=== PATIENT | male | born 1965 | race Hispanic/Latino ===

== ENCOUNTER 2019-01-09 08:08 | Inpatient (IN) | payer SELFPAY ==
[2019-01-09 08:46] LABS: #Basophils 0.1 thou/uL (0.0-0.2); #Lymphocytes 0.7 thou/uL (1.20-3.40); #Monocytes 0.6 thou/uL (0.11-0.59); %Basophils 0.9 % (0.0-1.0); %Eosinophils 0.4 % (0.0-10.0); %Lymphocytes 8.9 % (21.0-51.0); %Monocytes 7.7 % (0.0-10.0); %Neutrophils 82.1 % (42.0-75.0); Hemoglobin 11.3 g/dL (14.0-18.0); Mean Corpuscular HGB CONC 31.8 g/dL (32.0-36.0); Mean Corpuscular Hemoglobin 31.9 pg (27.0-31.0); Platelet Count 110 thou/uL (130-400); RBC Distribution Width 13.9 % (11.5-14.5); Red Blood Cell (RBC) Count 3.55 mill/uL (4.70-6.10); White Blood Cell (WBC) Count 7.3 thou/uL (4.8-10.8)
[2019-01-09 08:50] LABS: INR-International Normal Ratio 1.5; PTT 33.7 SEC (22.9-36.1); Prothrombin Time 17.7 SEC (12.0-14.7)
[2019-01-09 09:03] LABS: ALT (SGPT) 49 U/L (8-55); AST (SGOT) 103 U/L (5-34); Albumin 3.1 g/dL (3.5-5.0); Alkaline Phosphatase 75 U/L (40-150); Anion Gap 18 mmol/L (10-20); BUN (Urea Nitrogen) 18 mg/dL (8.4-25.7); Bilirubin, Total 2.8 mg/dL (0.2-1.2); Calc. Creatinine Clearance 0 mL/min (70-130); Calcium 8.2 mg/dL (7.8-10.44); Carbon Dioxide 18 mmol/L (22-29); Chloride 106 mmol/L (98-107); Estimated GFR-MDRD Greater than 90; Globulin 3.9 g/dL (2.4-3.5); Glucose 101 mg/dL (70-105); Potassium 4.9 mmol/L (3.5-5.1); Sodium 137 mmol/L (136-145)
--- NOTE | 2019-01-09 10:36 | CT ---
CT ABDOMEN AND PELVIS WITH IV CONTRAST: HISTORY: Abdominal pain, distention, GI bleed. FINDINGS: Comparison is made with the exam of 04/05/2017. The lung bases are clear. There are changes of fatty infiltration of the liver. There is irregulari ty of the liver surface suspicious for cirrhosis. No enhancing hepatic mass is seen. The spleen izabella sures about 15 cm in length. The pancreas, adrenal glands, and kidneys appear normal. No calcified gallstones are seen. There is edema in the wall of the gallbladder. No free air, free fluid, or lymphadenopathy is seen. The prostate is mildly enlarged. There are vascular calcificatio ns without evidence of aneurysmal dilatation of the abdominal aorta. There are a few prominent mesen teric lymph nodes measuring up to 7 mm. There are vascular calcifications without evidence of aneurysmal dilatation of the abdominal aorta. No portosplenic thrombosis is seen. There are degenerative changes in the spine. A small hiatal her bill is present. IMPRESSION: 1. Cirrhosis and fatty infiltration of the liver. 2. Splenomegaly. 3. Mild prostatic enlargement. 4. Gallbladder wall edema/thickening. If there is concern for acute cholecystitis, HIDA scan should be performed. 5. Small hiatal hernia. POS: OFF
[2019-01-09] MEDS ORDERED: ISOVUE-370 76%-LOCM 1 ML ONE (11:00)
[2019-01-09] MEDS ORDERED: Pantoprazole 40 MG VIAL ONE (11:39)
[2019-01-09] MEDS ORDERED: metroNIDAZOLE 500 MG/100 ML BAG ONE (12:12)
[2019-01-09] MEDS ORDERED: Ondansetron PF 4 MG/2 ML Vial ONE ×2 (12:12→16:07)
[2019-01-09] MEDS ORDERED: Multivitamins, Adult 10 ML, Thiamine HCl 100 MG, Folic Acid 1 MG in Dextrose 5 %-0.45 %... IV SCH (12:15)
[2019-01-09] MEDS ORDERED: Benzocaine 20% Spray 60 ML CAN ONE (12:16)
[2019-01-09] MEDS ORDERED: Octreotide Acetate 1,250 MCG in Sodium Chloride 0.9% 250 ML 250 ML IVPB SCH (12:30)
[2019-01-09 13:01] LABS: Acetaminophen Less than 6.0 mcg/mL (10.0-30.0); Alcohol 10 mg/dL (Less than 10); Salicylate Less than 8.0 mg/dL (15.0-30.0)
[2019-01-09] MEDS ORDERED: Lorazepam 2 MG/ML VIAL ONE (13:17)
[2019-01-09 14:12] LABS: Actual Bicarbonate (HCO3a) 21.3 mEq/L (22-28); Analyzer IN Cardio ER; Base Excess (BEa) -3.1 mEq/L (-2.0 to +3.0); CO2 Tension 35.3 mmHg (35.0-45.0); Calcium, Ionized 1.02 mmol/L (1.12-1.30); Carboxyhemoglobin (COHb) 0.2 gm% (0.0-3.0); Hemoglobin (Hb) 9.8 g/dL (14.0-18.0); Potassium - ABG Lab 4.31 mmol/L (3.70-5.30)
[2019-01-09 14:13] LABS: Puncture Site L.R.
[2019-01-09 14:14] LABS: ALV-art Gradient 9.605 (0-20)
[2019-01-09] MEDS ORDERED: Pantoprazole 80 MG in Sodium Chloride 0.9% 100 ML IVPB SCH (16:00)
[2019-01-09] MEDS ORDERED: PHENYLEPHRINE-NS 100 MCG/ML 10 ML SYRINGE ONE (16:07)
[2019-01-09] MEDS ORDERED: Succinylcholine Chloride 20 MG/ML 10 ml SYRINGE FS ONE (16:07)
[2019-01-09] MEDS ORDERED: Dexamethasone 20 MG/5 ML VIAL ONE (16:07)
[2019-01-09] MEDS ORDERED: PROPOFOL 200 MG/20 ML VIAL ONE (16:07)
[2019-01-09] MEDS ORDERED: Rocuronium Bromide 10 MG/ML (10ML VIAL) ONE (16:07)
[2019-01-09] MEDS ORDERED: Lidocaine 1% PF 5 ML VIAL ONE (16:07)
[2019-01-09] MEDS ORDERED: Midazolam HCl 5 mg/5 ml Vial ONE (16:10)
[2019-01-09 16:39] LABS: Actual Bicarbonate (HCO3a) 22.3 mEq/L (22-28); CO2 Tension 40.8 mmHg (35.0-45.0); Calcium, Ionized 0.96 mmol/L (1.12-1.30); Carboxyhemoglobin (COHb) 1.8 gm% (0.0-3.0); Hemoglobin (Hb) 7.8 g/dL (14.0-18.0); O2 Tension (PaO2) 135.9 mmHg (80.0-100.0); Potassium - ABG Lab 4.55 mmol/L (3.70-5.30); pH, Arterial 7.36 (7.35-7.45)
[2019-01-09 16:41] LABS: Puncture Site RRA
[2019-01-09] MEDS ORDERED: Midazolam HCl 2 mg/2 ml Vial ONE (16:52)
[2019-01-09] MEDS ORDERED: Propofol 1,000 MG/100 ML VIAL IV ONE (16:59)
--- NOTE | 2019-01-09 17:23 | HP ---
PRIMARY CARE PROVIDER: None. CHIEF COMPLAINT: Vomiting blood. HISTORY OF PRESENT ILLNESS: Mr. Park is a pleasant 53-year-old gentleman who was seen at [facility] on January 09, 2019. He reports that he had some blood in his stool over the last week. Yesterday evening, he started vomiting blood. He reports vomiting blood at least 9 times. He describes it as bright red blood. He denies any fevers or chills. He reports epigastric discomfort, but is unable to characterize it further. REVIEW OF SYSTEMS: All other systems reviewed and found to be negative. PAST MEDICAL HISTORY: Hypertension and gastroesophageal reflux disease. PAST SURGICAL HISTORY: None. SOCIAL HISTORY: The patient occasionally smokes. He drinks 6 beers every day. He denies any recreational drug use. FAMILY HISTORY: Significant for heart disease in his mother. Colon cancer in his father. ALLERGIES: NO KNOWN DRUG ALLERGIES. CURRENT MEDICATIONS: None. PHYSICAL EXAMINATION: GENERAL: Mr. Park is awake and alert, not in acute distress. VITAL SIGNS: Blood pressure is 107/72, pulse 106, respiratory rate 25, and oxygen saturation is 100% on room air. He is afebrile. EYES: The patient has scleral icterus, no conjunctival pallor. ENT: Moist mucosal membranes. No oropharyngeal erythema or exudates. NECK: Supple, nontender, trachea is midline. RESPIRATORY: Accessory muscles of breathing are not active. Chest wall movements are symmetric bilaterally. Lungs are clear to auscultation without wheeze, rhonchi, or crepitations. CARDIOVASCULAR: S1 and S2 are heard, tachycardic and regular. Peripheral pulses palpable. No carotid bruit. No pericardial rub. ABDOMEN: Soft, mild epigastric tenderness, no guarding or rigidity. Bowel sounds are heard. NEUROLOGIC: Cranial nerves 2 through 12 intact, no flapping tremor. MUSCULOSKELETAL: Power is 5/5 in all 4 extremities. SKIN: No rashes or subcutaneous nodules. LYMPHATIC: No cervical lymphadenopathy. PSYCHIATRIC: Normal mood, normal affect, the patient is oriented to person, place, and time. LABORATORY DATA: Mr. Park's labs and investigations were reviewed. A 12-lead electrocardiogram shows normal sinus rhythm, no ST changes to suggest an acute coronary syndrome. CT scan of the abdomen and pelvis showed cirrhosis and fatty infiltration of the liver, splenomegaly, mild prostatic enlargement and gallbladder wall edema/thickening. He has normal white count, macrocytic anemia with hemoglobin 11.3, thrombocytopenia with platelet count of 110,000. INR 1.5, normal sodium, normal potassium, creatinine 0.58, elevated total bilirubin of 2.8, elevated AST of 103, normal ALT, normal alkaline phosphatase and decreased albumin of 3.1. Plasma alcohol level is 10. ASSESSMENT AND PLAN: Mr. Park is a pleasant 53-year-old gentleman who was seen at [facility] on January 09, 2019. His problem list includes: 1. Upper gastrointestinal bleed: Mr. Park is presenting with upper gastrointestinal bleed, most likely secondary to either gastritis or varices. He will be admitted to the hospital for further management. He will be treated with octreotide and pantoprazole drips. His hemoglobin will be rechecked, and he will be transfused as necessary. His last hemoglobin was 11.3. We will consult Gastroenterology Service for opinion and help with management. 2. Abnormal liver function tests: Likely secondary to alcohol abuse. The patient has been counseled regarding alcohol cessation. 3. Hypertension: The patient is currently not on any antihypertensives. We will start him on antihypertensives if necessary. For now, we will monitor vital signs. 4. 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 Many thanks for allowing me to participate in your patient's care. Please feel free to contact me with any questions or concerns. The patient will be started on ASE protocol. LEVEL OF RISK: Moderate. LEVEL OF COMPLEXITY: Moderate. Job ID: [id number]
[2019-01-09] MEDS: Sodium Chloride 0.9% 1,000 ML IV SCH (17:25)
[2019-01-09 17:30] VITALS: BMI 26.4
[2019-01-09] MEDS: Multivitamins, Adult 10 ML, Folic Acid 1 MG, Thiamine HCl 100 MG in Dextrose 5 %-0.45 %... IV SCH (17:52)
[2019-01-09] MEDS ORDERED: DISCONTINUE PREVIOUS NARCOTIC PAIN MEDICATIONS AND BENZODIAZEPINES FS SCH (18:08)
[2019-01-09] MEDS ORDERED: fentaNYL Citrate/PF 2,000 MCG in Sodium Chloride 0.9% 60 ML IV SCH (18:08)
[2019-01-09] MEDS ORDERED: Fentanyl BOLUS 250 ML IVPB PRN (18:08)
[2019-01-09] MEDS ORDERED: Propofol BOLUS 1,000 MG/100 ML VIAL IV PRN (18:08)
[2019-01-09] MEDS ORDERED: Lorazepam 2 MG/ML VIAL SLOW IVP PRN ×2 (18:08→19:58)
[2019-01-09] MEDS ORDERED: Morphine 2 MG/ML SYRINGE SLOW IVP PRN (18:08)
[2019-01-09 19:29] LABS: Hemoglobin 9.7 g/dL (14.0-18.0)
[2019-01-09] MEDS: Pantoprazole 40 MG VIAL IVP SCH (20:27)
[2019-01-09] MEDS: Propofol 1,000 MG/100 ML VIAL IV PRN (21:47)
--- NOTE | 2019-01-10 00:42 | CON ---
DATE OF CONSULTATION: REASON FOR CONSULTATION: Mr. Park is a 63-year-old gentleman who is encephalopathic in the ER. I was consulted because of GI bleeding history. It is anticipated he is going to endoscopy. He has a long history of heavy alcohol abuse. Two of his sisters are in the room when I evaluated him. They say both he and his brother drink sun up to . He is not employed and is either borrowing money or convincing friends and family to buy him beer. His last drink was last night. Apparently last night, he started having bloody bowel movements and vomiting blood. They said there was scattered blood all over the bathroom at home. He is not a very good historian at the time of my evaluation this afternoon and most of the history is taken from family. PAST MEDICAL HISTORY: 1. Remarkable for admission in April of 2014 for chest discomfort. 2. History of hypertension. 3. History of reflux disease. SURGICAL HISTORY: He has had no surgery reportedly in the past. SOCIAL HISTORY: He lives with his mother, drinks beer all day long. Does not smoke. In the past, he has admitted to smoking marijuana occasionally. He has been drinking heavily over 30 years according to family. REVIEW OF SYSTEMS: Not accurately obtainable. PHYSICAL EXAMINATION: VITAL SIGNS: Blood pressure was 120 systolic. Heart rate was in the one teens. He received 4 L of fluid in the emergency department. He is afebrile. Blood pressure 131/82. GENERAL: He is tremulous. He is very unkempt. HEENT: Pupils are equal. Sclerae are anicteric. NECK: Supple without lymphadenopathy. HEART: Regular rhythm. S1 and S2 are normal. ABDOMEN: Soft and nontender. EXTREMITIES: Without clubbing, cyanosis, or edema. LABORATORY DATA: White count 7.3, hemoglobin 11.3, platelets 110. Blood gas after another 2 L of fluid, pH 7.36, CO2 40, PO2 135. Sodium 137, potassium 4.9, chloride 106, bicarb 18, BUN 18, creatinine 0.58, bilirubin is 2.8. AST is 103, ALT is 49, albumin is 3.1. INR was 1.5. CT of his abdomen and pelvis was done at 8: 41 this morning. This showed cirrhosis and fatty infiltration of his liver, 15-cm spleen. He has atherosclerotic vascular disease. Some small lymph nodes in his abdomen. Prostate was large. Gallbladder wall was thick. IMPRESSION AND PLAN: Gastrointestinal bleed with evidence of cirrhosis and portal hypertension with splenomegaly, coagulopathy, and hypoalbuminemia. He may need to be left intubated after his endoscopy. He may also have significant alcohol withdrawal over the next 2-3 days. Staff to assess him on day-by-day basis. I answered all the questions of his family. Both sisters recognize that his life may be short from here forward. He has never been able to quit drinking according to them. CRITICAL CARE TIME: 40 minutes. Job ID: [id number]
[2019-01-10] MEDS: Propofol 1,000 MG/100 ML VIAL IV PRN (02:13)
[2019-01-10 04:34] LABS: INR-International Normal Ratio 1.5; Prothrombin Time 18.3 SEC (12.0-14.7)
[2019-01-10 04:39] LABS: #Lymphocytes 0.8 thou/uL (1.20-3.40); #Monocytes 0.5 thou/uL (0.11-0.59); #Neutrophils 6.2 thou/uL (1.40-6.50); %Basophils 0.4 % (0.0-1.0); %Eosinophils 0.1 % (0.0-10.0); %Lymphocytes 9.9 % (21.0-51.0); %Monocytes 7.2 % (0.0-10.0); %Neutrophils 82.4 % (42.0-75.0); Hemoglobin 9.5 g/dL (14.0-18.0); Mean Corpuscular HGB CONC 33.7 g/dL (32.0-36.0); Mean Corpuscular Hemoglobin 32.9 pg (27.0-31.0); Mean Corpuscular Volume 97.6 fL (78.0-98.0); Mean Platelet Volume 8.6 fL (7.4-10.4); Platelet Count 97 thou/uL (130-400); RBC Distribution Width 14.2 % (11.5-14.5); Red Blood Cell (RBC) Count 2.89 mill/uL (4.70-6.10); White Blood Cell (WBC) Count 7.5 thou/uL (4.8-10.8)
[2019-01-10 04:45] LABS: ALT (SGPT) 80 U/L (8-55); AST (SGOT) 150 U/L (5-34); Albumin 2.5 g/dL (3.5-5.0); Alkaline Phosphatase 53 U/L (40-150); Anion Gap 10 mmol/L (10-20); BUN (Urea Nitrogen) 13 mg/dL (8.4-25.7); Bilirubin, Total 2.7 mg/dL (0.2-1.2); Calc. Creatinine Clearance 150 mL/min (70-130); Carbon Dioxide 23 mmol/L (22-29); Chloride 112 mmol/L (98-107); Estimated GFR-MDRD Greater than 90; Globulin 2.8 g/dL (2.4-3.5); Glucose 134 mg/dL (70-105); Magnesium 1.5 mg/dL (1.6-2.6); Phosphorus 2.9 mg/dL (2.3-4.7); Potassium 3.8 mmol/L (3.5-5.1); Protein, Total 5.3 g/dL (6.0-8.3); Sodium 141 mmol/L (136-145)
[2019-01-10 07:19] LABS: Actual Bicarbonate (HCO3a) 20.8 mEq/L (22-28); Base Excess (BEa) -2.1 mEq/L (-2.0 to +3.0); CO2 Tension 28.6 mmHg (35.0-45.0); Calcium, Ionized 1.02 mmol/L (1.12-1.30); O2 Tension (PaO2) 111.8 mmHg (80.0-100.0); Potassium - ABG Lab 3.37 mmol/L (3.70-5.30); pH, Arterial 7.48 (7.35-7.45)
[2019-01-10 07:35] LABS: Puncture Site LRA
--- NOTE | 2019-01-10 07:54 | RAD ---
Chest AP view INDICATION: Intubation status post EGD COMPARISON: May 07, 2018 FINDINGS: Tubes and Lines: ETT tip is seen at the level of thoracic inlet.. Lungs:Clear.. Cardiac silhouette pulmonary vasculature:Normal.. Pleural spaces: Clear. No pneumothorax. Upper abdomen:No abnormality seen. Osseous structures: There is healed deformity involving the distal right clavicle which is stable. No acute osseous abnormality is evident. IMPRESSION: Intubation. No acute cardiopulmonary abnormality.
[2019-01-10] MEDS: Sodium Chloride 0.9% 1,000 ML IV SCH ×2 (08:29→21:55)
[2019-01-10] MEDS: Pantoprazole 40 MG VIAL IVP SCH ×2 (08:29→21:55)
[2019-01-10] MEDS: cefTRIAXone\\ROCEPHIN 1 GM in Sodium Chloride 0.9% 100 ML IVPB SCH (08:29)
[2019-01-10] MEDS ORDERED: Magnesium Sulfate 4 GM in Sodium Chloride 0.9% 250 ML 250 ML IVPB SCH (08:45)
--- NOTE | 2019-01-10 09:52 | CON ---
DATE OF CONSULTATION: REASON FOR CONSULT: GI hemorrhage. HISTORY OF PRESENT ILLNESS: History comes mainly from talking to the nursing staff, the physician in the ER and also the patient's sisters here in the emergency room with him. Apparently last evening, he began to throw up blood, this was may be around 9 or 10. He threw this up several times and then ultimately had some black tarry stools. He was brought to the emergency room here. This morning, the patient's sisters note that there were some blood clots on the floor that they had noticed, they cleaned up. Then they brought him to the emergency room here. He was tachycardic, somewhat disheveled. He was found to have a hemoglobin of 11 that was at 8 this morning and INR of 1.5. Hemoglobin is 9.8 at 1400 hours, sodium 137, potassium 4.8, BUN and creatinine of 18 and 0.58. He had a bilirubin of 2.8. AST and ALT are 103 and 49 respectively, alkaline phosphatase 57, albumin was 3.1. Toxicology shows serum alcohol 10, acetaminophen less than 6. Salicylates negative. He received 4 units of IV fluids and some Protonix I think. I was called by the ICU physician, and asked if they could go ahead and give him some Rocephin in light of his suspected lower GI bleeding and suspect it is possible chronic liver disease. He was resuscitated again with about 4 L of normal saline. I recommended IV banana bag as well and octreotide drip as he has low platelets. Thus far, he has received Levaquin and Flagyl, Ativan, octreotide, normal saline, Protonix drip, Zofran, and a banana bag has been hung. He is a little bit sleepy and not really able to communicate all that well. His family notes that he has been a heavy drinker and has not really ever stopped, he used drugs, but nothing intravenous. He does not take a lot of Tylenol, and taken some ibuprofen for headache recently. They deny any known past surgical history or medical illness, maybe he had hypertension and at one point in time he was taking no medications for this. SOCIAL HISTORY: He drinks alcohol every day. Smokes and has for 30 years. FAMILY HISTORY: Negative for GI malignancies or liver disease known. REVIEW OF SYSTEMS: Really unable to be obtained as the patient is pretty somnolent. The family notes that is not normal for him, but they think that occurred for some of the medicines he was given here. He did have some lower abdominal pain last evening when he had this bloody stools. They estimates about 5 of those and 9 episodes of vomiting blood. The family notes he has not had any history of seizures or DT withdrawals. ALLERGIES: NONE KNOWN. PHYSICAL EXAMINATION: VITAL SIGNS: Blood pressure at 1400 hours was 97/63, pulse 119, respirations 20, temperature 98.4. At 10 this morning, his pulse was 109. GENERAL: He has NG tube in place that is draining some blood, less than 300 mL in the canister. He is icteric here. He is arousable to verbal stimuli and answers some questions in a mumbling fashion. HEENT: His conjunctivae otherwise are pink. Pupils are equal, round, and reactive. LUNGS: Clear. HEART: Regular rate and rhythm without clicks, rubs, or murmurs. ABDOMEN: Soft and nontender. There is no palpable hepatosplenomegaly. No shifting dullness or fluid wave. EXTREMITIES: No clubbing, cyanosis, or edema. LABORATORY STUDIES: Per HPI. IMAGING: The patient had a CAT scan here in the emergency room; it is not really clear why but that apparently showed some cirrhosis with nodular liver, fatty infiltration of the liver, mildly enlarged prostate, some edema of the gallbladder wall. ASSESSMENT: 1. Gastrointestinal hemorrhage. Differential diagnosis includes Faith-Limon tear, variceal bleed, ulcer. 2. Alcoholism, chronic alcohol abuse. 3. Cirrhosis, likely liver disease. Need to rule out viral hepatitis. RECOMMENDATIONS: As per discussion with the ER physician a few hours ago, banana bag, DT precautions, two large-bore IVs at all time, octreotide drip, Protonix IV 40 q.12, antibiotics to decrease risk of bacteremia and GI bleed and urgent endoscopy today. I have put him on the OR schedule and will be scoped this afternoon. Job ID: [id number]
--- NOTE | 2019-01-10 10:28 | PDOC.PN ---
- Subjective Encounter Start Date: 01/10/19 Encounter Start Time: 09:40 -: old records requested/rev pt is on vent, family bedside Patient seen and examined. No overnight events - Objective MAR Reviewed: Yes Vital Signs & Weight: Vital Signs (12 hours) Temp Pulse Resp BP Pulse Ox 01/10/19 10:22 98 01/10/19 08:00 99.7 F H 15 100 01/10/19 06:50 100 97/57 L 01/10/19 06:00 98.8 F 16 01/10/19 04:00 18 01/10/19 02:00 97.5 F L 17 01/10/19 00:00 17 Weight Weight 174 lb 2.643 oz Most Recent Monitor Data Heart Rate from ECG 101 NIBP 91/64 NIBP BP-Mean 73 Respiration from ECG 21 SpO2 93 I&O: 01/09/19 01/10/19 01/11/19 06:59 06:59 06:59 Intake Total 3165.3 Output Total 2030 175 Balance 1135.3 -175 Result Diagrams: 01/10/19 04:10 01/10/19 04:10 Radiology Reviewed by me: Yes (chest xray reviewed) EKG Reviewed by me: Yes (NSR) Phys Exam - Physical Examination Constitutional: NAD on vent, intubated HEENT: PERRLA Neck: no JVD, supple Respiratory: no wheezing, no rales, no rhonchi Cardiovascular: RRR, no significant murmur, no rub Gastrointestinal: soft, no distention, positive bowel sounds Musculoskeletal: no edema, pulses present Lymphatic: no nodes Skin: no rash, normal turgor Dx/Plan (1) Acute respiratory failure Code(s): J96.00 - ACUTE RESPIRATORY FAILURE, UNSP W HYPOXIA OR HYPERCAPNIA Status: Acute (2) Anemia due to acute blood loss Code(s): D62 - ACUTE POSTHEMORRHAGIC ANEMIA Status: Acute (3) GI bleed Code(s): K92.2 - GASTROINTESTINAL HEMORRHAGE, UNSPECIFIED Status: Acute (4) Hypomagnesemia Code(s): E83.42 - HYPOMAGNESEMIA Status: Acute (5) Abnormal LFTs Code(s): R94.5 - ABNORMAL RESULTS OF LIVER FUNCTION STUDIES Status: Chronic (6) Alcohol abuse Code(s): F10.10 - ALCOHOL ABUSE, UNCOMPLICATED Status: Chronic (7) Alcoholic cirrhosis of liver Code(s): K70.30 - ALCOHOLIC CIRRHOSIS OF LIVER WITHOUT ASCITES Status: Chronic (8) Coagulopathy Status: Chronic (9) GERD (gastroesophageal reflux disease) Code(s): K21.9 - GASTRO-ESOPHAGEAL REFLUX DISEASE WITHOUT ESOPHAGITIS Status: Chronic (10) Hypertension Code(s): I10 - ESSENTIAL (PRIMARY) HYPERTENSION Status: Chronic (11) Hypoalbuminemia Code(s): E88.09 - OTH DISORDERS OF PLASMA-PROTEIN METABOLISM, NEC Status: Chronic - Plan cont current plan of care, plan discussed w/ family, continue antibiotics * continue octreotide drip, continue protonix * replace magnesium * continue rocephin * H & H stable * discussed with family * vent as per pulmonary * medication reviewed as below * symptomatic treatment. Review of Systems - Review of Systems Other: unable to review due to intubated status - Medications/Allergies Allergies/Adverse Reactions: Allergies Allergy/AdvReac Type Severity Reaction Status Date / Time No Known Drug Allergies Allergy Verified 01/09/19 16:41 Medications: Current Medications Octreotide Acetate 1,250 mcg/ (Sodium Chloride) 251.25 mls @ 5.02 mls/hr IVPB INF [facility]LLY Multivitamins 10 ml/ Folic Acid 1 mg/ Thiamine HCl 100 mg / Dextrose/Sodium Chloride 1,011.2 mls @ 100 mls/hr IV Q24HR [facility] Last Admin: 01/09/19 17:52 Dose: Not Given Ceftriaxone Sodium 1 gm/ (Sodium Chloride) 100 mls @ 200 mls/hr IVPB Q24HR [facility] Stop: 01/13/19 23:59 Last Admin: 01/10/19 08:29 Dose: 100 mls Sodium Chloride (Normal Saline 0.9%) 1,000 mls @ 70 mls/hr IV .[id number] [facility] Last Admin: 01/10/19 08:29 Dose: 1,000 mls Fentanyl Citrate 2,000 mcg/ (Sodium Chloride) 100 mls @ 0 mls/hr IV INF NELLY; Protocol Stop: 02/08/19 18:08 Fentanyl Citrate (Fentanyl Bolus) 250 mls @ 0 mls/hr IVPB PRN PRN PRN Reason: Breakthrough pain/agitation Stop: 02/08/19 18:08 Magnesium Sulfate 4 gm/ Sodium (Chloride) 258 mls @ 86 mls/hr IVPB ONE [facility] Stop: 01/10/19 12:00 Lorazepam (Ativan) 2 mg SLOW IVP Q1H PRN PRN Reason: Breakthrough agitation Morphine Sulfate (Morphine) 2 mg SLOW IVP Q1H PRN PRN Reason: BREAKTHROUGH PAIN/Agitation Stop: 02/08/19 18:08 Last Admin: 01/09/19 22:51 Dose: 2 mg Discontinue Previous Narcotic Pain Medications And Benzodiazepines 1 each FS .ONE [facility] Stop: 02/08/19 18:08 Pantoprazole Sodium (Protonix) 40 mg IVP Q12HR [facility] Last Admin: 01/10/19 08:29 Dose: 40 mg Propofol (Diprivan) 1,000 mg IV INF PRN; Protocol PRN Reason: TO ACHIEVE GOAL RASS Stop: 02/08/19 18:08 Last Admin: 01/10/19 02:13 Dose: 1,000 mg Propofol (Diprivan Bolus) 20 mg IV Q5MIN PRN PRN Reason: BREAKTHROUGH AGITATION Stop: 02/08/19 18:08 Sodium Chloride (Flush - Normal Saline) 10 ml IVF Q12HR [facility] Last Admin: 01/10/19 08:30 Dose: 10 ml Sodium Chloride (Flush - Normal Saline) 10 ml IVF PRN PRN PRN Reason: Saline Flush
--- NOTE | 2019-01-10 13:01 | OP ---
DATE OF PROCEDURE: 01/09/2019 PROCEDURE PERFORMED: EGD with control of bleeding. PREPROCEDURE DIAGNOSES: 1. Gastrointestinal hemorrhage. 2. Cirrhosis. 3. Concern for esophageal varices. 4. Alcohol intoxication. ANESTHESIA: General endotracheal anesthesia for airway protection. The patient was on octreotide drip and Protonix during the procedure. One unit of blood was transfused during the procedure, which was started once we finished. POSTPROCEDURE DIAGNOSES: 1. Esophageal varices bleeding at the gastroesophageal junction, banded x4 with good hemostasis. 2. No overt evidence of gastric varices, although poor visualization secondary to blood was noted. 3. Normal duodenum except for old blood. RECOMMENDATIONS: 1. Repeat banding in 2-4 weeks. 2. The patient will remain intubated secondary to somnolence before the procedure as he did get an Ativan in the emergency room and felt to be a risk for aspiration. 3. Keep NG tube out. 4. Plan to extubate tomorrow morning, we will hold sedation or sedate only very lightly with propofol if needed. PROCEDURE IN DETAIL: The patient was informed of the risks, benefits, and possible complications of endoscopy including perforation, reaction to medication, and aspiration. Informed consent was obtained from the patient's family. He was brought to the endoscopy room where he was intubated for airway protection. The NG tube was removed. Once he was stable, a bite block was placed inside the orifice. The endoscope was advanced through the esophagus, stomach, and third portion of the duodenum and slowly removed. The esophagus was noted for blood in the distal esophagus, which was cleared away and varices were noted. The blood reaccumulated right at the GE junction. Could not tell if this is bleeding varix or Faith-Limon tear. The scope was advanced to the stomach. There was quite a bit of clot which had to be evacuated. We could not evacuate all. We could see some active pulsatile bleeding at the GE junction. It was in constant stream that seemed to be probably a varix at this level. There is no overt signs of Faith-Limon tear. There were other varices noted in the distal esophagus with red whale signs. The scope was advanced into the antrum of stomach which was clear. Duodenum was evaluated, third portion was clear except for some old blood, which could have had small lesions, but no visible vessel or active bleeding was seen in this area. Retroflexed views in the stomach were normal except we could not totally clear the proximal fundus of the stomach. The retroflexed views were normal. No evidence of gastric varices seen. With the pulsatile bleeding of the varix, the GE junction, band at this point in time. The scope was removed. The band ligator kit was applied. Four bands were placed over the varices in the distal esophagus. Bleeding was noted to stop. The procedure was discontinued. The scope was removed. The patient was brought to the recovery room in stable condition. I have talked with Anesthesia. They felt that the patient was pretty somnolent and is at risk for airway protection, especially if there is further bleeding, so we decided to keep him intubated overnight. Job ID: [id number]
--- NOTE | 2019-01-10 14:00 | PRG ---
DATE OF SERVICE: 01/10/2019 SUBJECTIVE: Mr. Park awakened and was cooperative. He was not jittery or tremulous. He does have a low-grade temperature this morning. He is placed on pressure support 5, PEEP 5, and IMV of 4, and basically, underwent a prolonged spontaneous breathing trial. He did well with this. He passed a leak test. His minute volume was 8 L a minute. OBJECTIVE: VITAL SIGNS: His blood pressure 96/50, heart rate is 100, and respiratory rate was in the 20s. LUNGS: Clear. HEART: Regular rhythm. ABDOMEN: Soft. EXTREMITIES: Without asymmetry or edema. NEURO: Grossly nonfocal. LABORATORY DATA: White count 7.5, hemoglobin 9.5, and platelets 97,000. Sodium 141, potassium 3.8, chloride 112, bicarb 23, BUN 13, and creatinine 0.6. A pH 7.48, CO2 20, and pO2 111. IMAGING STUDIES: Chest x-ray today is clear. IMPRESSION: 1. Status post gastrointestinal bleed with banding of esophageal varices. 2. Cirrhosis with portal hypertension. 3. Thrombocytopenia associated with portal hypertension and hypersplenism. 4. Daily heavy alcohol use. 5. Blood loss anemia. 6. Status post intubation for his gastrointestinal bleed. PLAN: He was left intubated because of his encephalopathy on presentation to the hospital. This appears to have for the most part resolved. We will continue to follow while he is in the critical care unit. CRITICAL CARE TIME: 35 minutes. Job ID: [id number]
[2019-01-10] MEDS: Multivitamins, Adult 10 ML, Folic Acid 1 MG, Thiamine HCl 100 MG in Dextrose 5 %-0.45 %... IV SCH (15:36)
[2019-01-10] MEDS: Acetaminophen 500 MG TAB PO PRN (16:45)
[2019-01-11] MEDS: Acetaminophen 500 MG TAB PO PRN
[2019-01-11 04:51] LABS: #Eosinphils 0.1 thou/uL (0.0-0.7); #Lymphocytes 1.2 thou/uL (1.20-3.40); #Monocytes 0.4 thou/uL (0.11-0.59); #Neutrophils 2.3 thou/uL (1.40-6.50); %Basophils 1.2 % (0.0-1.0); %Eosinophils 2.6 % (0.0-10.0); %Neutrophils 57.2 % (42.0-75.0); Hemoglobin 7.9 g/dL (14.0-18.0); Mean Corpuscular HGB CONC 33.6 g/dL (32.0-36.0); Mean Corpuscular Hemoglobin 33.2 pg (27.0-31.0); Mean Corpuscular Volume 98.7 fL (78.0-98.0); Mean Platelet Volume 8.3 fL (7.4-10.4); Platelet Count 62 thou/uL (130-400); Platelet Morphology Comment Appears Decreased; RBC Distribution Width 13.9 % (11.5-14.5); Red Blood Cell (RBC) Count 2.37 mill/uL (4.70-6.10); White Blood Cell (WBC) Count 3.9 thou/uL (4.8-10.8)
[2019-01-11 04:54] LABS: Anion Gap 6 mmol/L (10-20); BUN (Urea Nitrogen) 11 mg/dL (8.4-25.7); Calc. Creatinine Clearance 141 mL/min (70-130); Carbon Dioxide 26 mmol/L (22-29); Chloride 111 mmol/L (98-107); Estimated GFR-MDRD Greater than 90; Glucose 98 mg/dL (70-105); Phosphorus 2.3 mg/dL (2.3-4.7); Potassium 3.3 mmol/L (3.5-5.1); Sodium 140 mmol/L (136-145)
[2019-01-11 05:10] LABS: HBCM Index 0.06 S/CO (0-0.79); HBSAg Index 0.33 S/CO (0-0.99); Hep A IgM AB Non-Reactive (NonReactive); Hep A IgM S/CO 0.31 S/CO (0-0.79); Hep B Surf Ag Non-Reactive S/CO (NonReactive); Hep C IgG Ab Non-Reactive (NonReactive); Hep C Index 0.07 S/CO (0-0.79); Hepatitis B Core IgM Abs Non-Reactive (NonReactive)
[2019-01-11 07:06] LABS: HBSAB Concentration 37.55 mIU/mL; Hep B Surf AB Reactive (NonReactive)
[2019-01-11] MEDS: cefTRIAXone\\ROCEPHIN 1 GM in Sodium Chloride 0.9% 100 ML IVPB SCH (07:26)
[2019-01-11] MEDS: Pantoprazole 40 MG VIAL IVP SCH ×2 (07:26→20:18)
[2019-01-11] MEDS ORDERED: Cepastat Lozenges 1 LOZ PO PRN (07:50)
[2019-01-11] MEDS ORDERED: Diabetic Tussin 200 MG/10 ML UDCUP PO PRN (07:50)
[2019-01-11] MEDS ORDERED: Sodium Chloride 0.65% Nasal 44 ML BOT EA NARE PRN (07:50)
[2019-01-11] MEDS ORDERED: Eucerin (Mineral Oil/Petrolatum,White) 30 gm Jar TOP PRN (07:50)
[2019-01-11] MEDS ORDERED: Ondansetron PF 4 MG/2 ML Vial IVP PRN (07:50)
[2019-01-11] MEDS ORDERED: Artificial Tears 18 DROP/0.9 ML EA EYE PRN (07:50)
[2019-01-11] MEDS ORDERED: Ondansetron ODT 4 MG TAB SL PRN (07:50)
--- NOTE | 2019-01-11 08:01 | PRG ---
DATE OF SERVICE: 01/10/2019 SUBJECTIVE: Mr. Pretty has been extubated. He is still somewhat sleepy and follows commands and arousable. Nurses noted no bleeding, no vomiting. MEDICATIONS: Rocephin, p.r.n. Tylenol, Ativan p.r.n., morphine p.r.n., multivitamin, thiamine, folate daily, dextrose, octreotide 25 mcg/hour, Protonix 40 IV q.12, not received any fentanyl as received 2 mg of morphine yesterday. OBJECTIVE: VITAL SIGNS: Blood pressure 90/56, pulse 90, respirations 18, temperature 101 max. In's and out's . Transfusions, 2 units of blood yesterday. GENERAL: He is somewhat arousable, mildly icteric. LUNGS: Clear. HEART: Regular rate and rhythm without clicks or murmurs. ABDOMEN: Protuberant, but no overt ascites present. No shifting dullness. No fluid wave. EXTREMITIES: No clubbing, cyanosis, or edema. LABORATORY DATA: White count 7.5, hemoglobin 9.5, and platelet count 97,000. INR 1.5. Sodium 141, potassium 3.8, BUN and creatinine of 13 and 0.62, glucose 134, phosphorus 2.9, magnesium 1.5, replaced. Bilirubin 2.7, AST and ALT of 150 and 80, alkaline phosphatase 53, albumin 2.5. ASSESSMENT: 1. Gastrointestinal hemorrhage from esophageal varices, banded. No further bleeding. 2. Intubated last night for procedure for airway control and protection. Extubated this morning. He is more alert. 3. Fever, on prophylactic antibiotics. We will observe. This could be related to banding, but if he has persistence fever, he will need cultures and a chest x-ray again. 4. Cirrhosis, alcoholic with a component of alcoholic hepatitis. 5. Varices. Continue octreotide and PPI therapy for 48 hours. 6. Advance diet slowly, start clears now. 7. With altered mental status, check ammonia level. 8. Continue to check electrolytes and replace magnesium, phosphorus replaced as necessary. Continue banana bag until the patient is able to take p.o. 9. We will check hepatitis serologies and alpha-fetoprotein. Job ID: [id number]
[2019-01-11 08:32] LABS: #Eosinphils 0.1 thou/uL (0.0-0.7); #Lymphocytes 0.9 thou/uL (1.20-3.40); #Monocytes 0.4 thou/uL (0.11-0.59); %Basophils 1.4 % (0.0-1.0); %Eosinophils 1.9 % (0.0-10.0); %Lymphocytes 27.1 % (21.0-51.0); %Monocytes 10.7 % (0.0-10.0); Hemoglobin 7.6 g/dL (14.0-18.0); Mean Corpuscular HGB CONC 32.7 g/dL (32.0-36.0); Mean Corpuscular Hemoglobin 32.5 pg (27.0-31.0); Mean Corpuscular Volume 99.4 fL (78.0-98.0); Mean Platelet Volume 8.7 fL (7.4-10.4); Platelet Count 60 thou/uL (130-400); Red Blood Cell (RBC) Count 2.32 mill/uL (4.70-6.10); White Blood Cell (WBC) Count 3.4 thou/uL (4.8-10.8)
[2019-01-11] MEDS: Cyanocobalamin (Vitamin B-12) 1,000 MCG TAB PO SCH (10:02)
[2019-01-11] MEDS: Folic Acid 1 MG TAB PO SCH (10:02)
[2019-01-11] MEDS: Multivitamin W/ Minerals 1 TAB PO SCH (10:02)
[2019-01-11] MEDS: Thiamine 100 MG TAB PO SCH (10:02)
[2019-01-11] MEDS: Rifaximin 550 MG TAB PO SCH ×2 (10:02→20:17)
--- NOTE | 2019-01-11 10:33 | PRG ---
DATE OF SERVICE: 01/11/2019 SUBJECTIVE: Mr. Park was evaluated this morning. He is surprisingly calm and cooperative. He does not clinically appear to be having any alcohol withdrawal. OBJECTIVE: VITAL SIGNS: His blood pressure is 84/48, heart rate 67, respiratory rates in the teens, oximetry is 98% on room air. LUNGS: Clear. HEART: Regular rhythm. ABDOMEN: Soft and nontender. LABORATORY DATA: Hemoglobin is down to 7.6. The drop is likely secondary to a 2.1 L positive fluid balance. He is clinically not bleeding. His electrolytes remarkable only for potassium of 3.3. His creatinine is 0.66. IMPRESSION: Cirrhosis with portal hypertension and esophageal varices, status post banding with bleed. He is stable to move out of the Critical Care Unit. He might benefit from transfusion with 1 unit of blood. He is getting close to being a candidate for discharge in my opinion. Job ID: [id number]
--- NOTE | 2019-01-11 10:39 | PDOC.PN ---
- Subjective Encounter Start Date: 01/11/19 Encounter Start Time: 09:40 Patient seen and examined. No new complaints. No overnight events - Objective MAR Reviewed: Yes Vital Signs & Weight: Vital Signs (12 hours) Temp BP 01/11/19 08:00 84/48 L 01/11/19 07:00 98.2 F 01/11/19 04:00 87/61 L 01/11/19 00:00 99.6 F 89/55 L Weight Weight 174 lb 2.643 oz Most Recent Monitor Data Heart Rate from ECG 68 NIBP 86/56 NIBP BP-Mean 66 Respiration from ECG 23 SpO2 97 I&O: 01/10/19 01/11/19 01/12/19 06:59 06:59 06:59 Intake Total 3165.3 3433.7 240 Output Total 2030 1285 145 Balance 1135.3 2148.7 95 Result Diagrams: 01/11/19 07:49 01/11/19 04:18 EKG Reviewed by me: Yes Phys Exam - Physical Examination Constitutional: NAD HEENT: PERRLA, moist MMs Neck: no JVD, supple Respiratory: no wheezing, no rales, no rhonchi Cardiovascular: RRR, no significant murmur, no rub Gastrointestinal: soft, non-tender, no distention, positive bowel sounds Musculoskeletal: no edema, pulses present Neurological: non-focal, normal sensation Lymphatic: no nodes Psychiatric: normal affect Skin: no rash, normal turgor Dx/Plan (1) Acute respiratory failure Code(s): J96.00 - ACUTE RESPIRATORY FAILURE, UNSP W HYPOXIA OR HYPERCAPNIA Status: Resolved (2) Anemia due to acute blood loss Code(s): D62 - ACUTE POSTHEMORRHAGIC ANEMIA Status: Acute (3) GI bleed Code(s): K92.2 - GASTROINTESTINAL HEMORRHAGE, UNSPECIFIED Status: Resolved (4) Hypomagnesemia Code(s): E83.42 - HYPOMAGNESEMIA Status: Resolved (5) Abnormal LFTs Code(s): R94.5 - ABNORMAL RESULTS OF LIVER FUNCTION STUDIES Status: Chronic (6) Alcohol abuse Code(s): F10.10 - ALCOHOL ABUSE, UNCOMPLICATED Status: Chronic (7) Alcoholic cirrhosis of liver Code(s): K70.30 - ALCOHOLIC CIRRHOSIS OF LIVER WITHOUT ASCITES Status: Chronic (8) Coagulopathy Status: Chronic (9) GERD (gastroesophageal reflux disease) Code(s): K21.9 - GASTRO-ESOPHAGEAL REFLUX DISEASE WITHOUT ESOPHAGITIS Status: Chronic (10) Hypertension Code(s): I10 - ESSENTIAL (PRIMARY) HYPERTENSION Status: Chronic (11) Hypoalbuminemia Code(s): E88.09 - OTH DISORDERS OF PLASMA-PROTEIN METABOLISM, NEC Status: Chronic - Plan cont current plan of care, continue antibiotics * transfer to [facility] * medication reviewed as below * symptomatic treatment * continue octreotide, rocephin and protonix * monitor vitals * repeat labs tomorrow * ambulate as tolerated. * horacio freitas Review of Systems - Review of Systems ENT: negative: Ear Pain, Ear Discharge, Nose Pain, Nose Discharge, Nose Congestion, Mouth Pain, Mouth Swelling, Throat Pain, Throat Swelling, Other Respiratory: negative: Cough, Dry, Shortness of Breath, Hemoptysis, SOB with Excertion, Pleuritic Pain, Sputum, Wheezing Cardiovascular: negative: chest pain, palpitations, orthopnea, paroxysmal nocturnal dyspnea, edema, light headedness, other Gastrointestinal: negative: Nausea, Vomiting, Abdominal Pain, Diarrhea, Constipation, Melena, Hematochezia, Other Genitourinary: negative: Dysuria, Frequency, Incontinence, Hematuria, Retention , Other Musculoskeletal: negative: Neck Pain, Shoulder Pain, Arm Pain, Back Pain, Hand Pain, Leg Pain, Foot Pain, Other - Medications/Allergies Allergies/Adverse Reactions: Allergies Allergy/AdvReac Type Severity Reaction Status Date / Time No Known Drug Allergies Allergy Verified 01/09/19 16:41 Medications: Current Medications Acetaminophen (Tylenol) 500 mg PO Q6H PRN PRN Reason: Fever or Pain Last Admin: 01/11/19 00:00 Dose: 500 mg Artificial Tears (Tears Naturale) 2 drop EA EYE PRN PRN PRN Reason: Dry Eyes Cyanocobalamin (Vitamin B-12) 1,000 mcg PO DAILY [facility] Last Admin: 01/11/19 10:02 Dose: 1,000 mcg Folic Acid (Folvite) 1 mg PO DAILY [facility] Last Admin: 01/11/19 10:02 Dose: 1 mg Guaifenesin (Robitussin Sf) 200 mg PO Q4H PRN PRN Reason: Cough Octreotide Acetate 1,250 mcg/ (Sodium Chloride) 251.25 mls @ 5.02 mls/hr IVPB INF [facility] Last Admin: 01/10/19 21:55 Dose: 251.25 mls Ceftriaxone Sodium 1 gm/ (Sodium Chloride) 100 mls @ 200 mls/hr IVPB Q24HR [facility] Stop: 01/13/19 23:59 Last Admin: 01/11/19 07:26 Dose: 100 mls Sodium Chloride (Normal Saline 0.9%) 1,000 mls @ 70 mls/hr IV .[id number] [facility] Last Admin: 01/10/19 21:55 Dose: 1,000 mls Iron/Minerals/Multivitamins (Theragran M) 1 tab PO DAILY [facility] Last Admin: 01/11/19 10:02 Dose: 1 tab Lactulose (Lactulose) 20 gm PO TID [facility] Last Admin: 01/11/19 10:03 Dose: 20 gm Mineral Oil/White Petrolatum (Eucerin Cream) 0 gm TOP BIDPRN PRN PRN Reason: Dry Skin Ondansetron HCl (Zofran Odt) 4 mg SL Q6H PRN PRN Reason: Nausea/Vomiting Ondansetron HCl (Zofran) 4 mg IVP Q6H PRN PRN Reason: Nausea/Vomiting Pantoprazole Sodium (Protonix) 40 mg IVP Q12HR [facility] Last Admin: 01/11/19 07:26 Dose: 40 mg Rifaximin (Xifaxan) 550 mg PO BID [facility] Last Admin: 01/11/19 10:02 Dose: 550 mg Sodium Chloride (Flush - Normal Saline) 10 ml IVF Q12HR [facility] Last Admin: 01/11/19 07:26 Dose: 10 ml Sodium Chloride (Flush - Normal Saline) 10 ml IVF PRN PRN PRN Reason: Saline Flush Sodium Chloride ([place] Nasal [place] 0.65%) 0 ml EA NARE QIDPRN PRN PRN Reason: Nasal Congestion Thiamine HCl (Thiamine) 100 mg PO DAILY [facility] Last Admin: 01/11/19 10:02 Dose: 100 mg Throat Lozenges (Cepastat Lozenges) 1 baltazar PO Q2H PRN PRN Reason: Sore Throat
[2019-01-11] MEDS: Sodium Chloride 0.9% 1,000 ML IV SCH ×2 (13:04→20:19)
--- NOTE | 2019-01-11 15:43 | PRG ---
DATE OF SERVICE: 01/11/2019 SUBJECTIVE: Mr. Park is resting in bed. He states he knows where he is. The hospital staffs have stopped his IV fluids. He is tolerating liquid diet. Apparently, he was receiving both banana bag and normal saline previously. He is started on lactulose, having about 2 bowel movements a day. Nurses report he has had no further fever today. He has also been started on Rifaximin. PHYSICAL EXAMINATION: VITAL SIGNS: T-max 101 at 1600 yesterday, so far 98.3 max today; pulse 78; and blood pressure 98/62. GENERAL: He is resting in bed. HEENT: He is icteric. LUNGS: Clear. HEART: Regular rhythm. ABDOMEN: Nontender. EXTREMITIES: No clubbing, cyanosis, or edema. LABORATORY STUDIES: White count is 3.4, hemoglobin 7.6, platelet count is 60,000. Sodium 140, potassium 3.3, BUN and creatinine are 11 and 0.6. Ammonia was serology was negative. ASSESSMENT: 1. Gastrointestinal hemorrhage secondary to varicocele hemorrhage, stable. No signs of overt bleeding. 2. Encephalopathy, started on lactulose, has had two melenic stools, this seems to be old blood. He is also started on Xifaxan. 3. Alcoholism. He is on multivitamin, thiamine, and folate daily. We are advancing the diet now as he does not seem to have any bleeding. There has been no signs of DTs. RECOMMENDATIONS: 1. Advance diet as tolerated. 2. Wean off octreotide. 3. If showed no signs of bleeding, can get him off the IV Protonix and change to p.o. We would watch for recurrent fever. Dr. Covington is on-call for GI this week and will be following up on the patient. Job ID: [id number]
[2019-01-11 17:03] LABS: ANA Symphony (Qualitative) Negative (Negative); ANA Symphony (Quantitative) 0.2 Ratio (< 0.7 Negative); EliA Vaculitis New Method **** NEW METHOD ****; Mitochondrial Ab 1.3 U/mL (<4 Negative); dsDNA IgG Antibody 0.7 IU/mL (<10 Negative)
[2019-01-11] MEDS ORDERED: Potassium Chloride 20 MEQ TAB PO SCH (18:45)
[2019-01-12 04:07] LABS: #Eosinphils 0.1 thou/uL (0.0-0.7); #Lymphocytes 0.8 thou/uL (1.20-3.40); #Monocytes 0.3 thou/uL (0.11-0.59); #Neutrophils 1.9 thou/uL (1.40-6.50); %Eosinophils 3.3 % (0.0-10.0); %Lymphocytes 25.7 % (21.0-51.0); %Monocytes 10.4 % (0.0-10.0); %Neutrophils 59.7 % (42.0-75.0); Hemoglobin 7.4 g/dL (14.0-18.0); Mean Corpuscular HGB CONC 32.9 g/dL (32.0-36.0); Mean Corpuscular Hemoglobin 32.6 pg (27.0-31.0); Mean Corpuscular Volume 99.1 fL (78.0-98.0); Mean Platelet Volume 8.4 fL (7.4-10.4); Platelet Count 60 thou/uL (130-400); RBC Distribution Width 13.8 % (11.5-14.5); Red Blood Cell (RBC) Count 2.27 mill/uL (4.70-6.10); White Blood Cell (WBC) Count 3.1 thou/uL (4.8-10.8)
[2019-01-12 04:16] LABS: ALT (SGPT) 84 U/L (8-55); AST (SGOT) 104 U/L (5-34); Albumin 2.4 g/dL (3.5-5.0); Alkaline Phosphatase 58 U/L (40-150); Anion Gap 8 mmol/L (10-20); BUN (Urea Nitrogen) 6 mg/dL (8.4-25.7); Bilirubin, Total 1.8 mg/dL (0.2-1.2); Calc. Creatinine Clearance 148 mL/min (70-130); Calcium 7.1 mg/dL (7.8-10.44); Carbon Dioxide 23 mmol/L (22-29); Chloride 111 mmol/L (98-107); Estimated GFR-MDRD Greater than 90; Globulin 2.7 g/dL (2.4-3.5); Glucose 111 mg/dL (70-105); Potassium 3.3 mmol/L (3.5-5.1); Protein, Total 5.1 g/dL (6.0-8.3); Sodium 139 mmol/L (136-145)
[2019-01-12 07:22] LABS: Hepatitis A Total ABS Positive (Negative)
[2019-01-12] MEDS ORDERED: Potassium Chloride 20 MEQ TAB PO SCH (07:30)
[2019-01-12] MEDS: Cyanocobalamin (Vitamin B-12) 1,000 MCG TAB PO SCH (08:32)
[2019-01-12] MEDS: Pantoprazole 40 MG VIAL IVP SCH (08:32)
[2019-01-12] MEDS: Multivitamin W/ Minerals 1 TAB PO SCH (08:32)
[2019-01-12] MEDS: Folic Acid 1 MG TAB PO SCH (08:32)
[2019-01-12] MEDS: Thiamine 100 MG TAB PO SCH (08:32)
[2019-01-12] MEDS: Rifaximin 550 MG TAB PO SCH ×2 (08:32→20:46)
[2019-01-12] MEDS: cefTRIAXone\\ROCEPHIN 1 GM in Sodium Chloride 0.9% 100 ML IVPB SCH (08:32)
[2019-01-12] MEDS: Acetaminophen 500 MG TAB PO PRN ×3 (08:46→20:47)
--- NOTE | 2019-01-12 10:25 | PDOC.PN ---
- Subjective Encounter Start Date: 01/12/19 Encounter Start Time: 09:30 Patient seen and examined. No new complaints. No overnight events - Objective MAR Reviewed: Yes Vital Signs & Weight: Vital Signs (12 hours) Temp Pulse Resp BP BP Pulse Ox 01/12/19 04:38 98.3 F 81 18 97/57 L 97/57 L 95 01/12/19 00:10 99/57 L 01/11/19 23:48 98.9 F 76 18 99/57 L 96 Weight Weight 174 lb 2.643 oz Most Recent Monitor Data Heart Rate from ECG 72 NIBP 100/63 NIBP BP-Mean 75 Respiration from ECG 24 SpO2 99 I&O: 01/11/19 01/12/19 01/13/19 06:59 06:59 06:59 Intake Total 3433.7 2385.8 Output Total 1285 990 Balance 2148.7 1395.8 Result Diagrams: 01/12/19 03:42 01/12/19 03:42 EKG Reviewed by me: Yes Phys Exam - Physical Examination Constitutional: NAD HEENT: PERRLA, moist MMs, sclera anicteric Neck: no JVD, supple Respiratory: no wheezing, no rales, no rhonchi Cardiovascular: RRR, no significant murmur, no rub Gastrointestinal: soft, non-tender, no distention, positive bowel sounds Musculoskeletal: no edema, pulses present Neurological: non-focal, normal sensation Lymphatic: no nodes Psychiatric: normal affect, A&O x 3 Skin: no rash, normal turgor Dx/Plan (1) Acute respiratory failure Code(s): J96.00 - ACUTE RESPIRATORY FAILURE, UNSP W HYPOXIA OR HYPERCAPNIA Status: Resolved (2) Anemia due to acute blood loss Code(s): D62 - ACUTE POSTHEMORRHAGIC ANEMIA Status: Acute (3) GI bleed Code(s): K92.2 - GASTROINTESTINAL HEMORRHAGE, UNSPECIFIED Status: Resolved (4) Hypomagnesemia Code(s): E83.42 - HYPOMAGNESEMIA Status: Resolved (5) Abnormal LFTs Code(s): R94.5 - ABNORMAL RESULTS OF LIVER FUNCTION STUDIES Status: Chronic (6) Alcohol abuse Code(s): F10.10 - ALCOHOL ABUSE, UNCOMPLICATED Status: Chronic (7) Alcoholic cirrhosis of liver Code(s): K70.30 - ALCOHOLIC CIRRHOSIS OF LIVER WITHOUT ASCITES Status: Chronic (8) Coagulopathy Status: Chronic (9) GERD (gastroesophageal reflux disease) Code(s): K21.9 - GASTRO-ESOPHAGEAL REFLUX DISEASE WITHOUT ESOPHAGITIS Status: Chronic (10) Hypertension Code(s): I10 - ESSENTIAL (PRIMARY) HYPERTENSION Status: Chronic (11) Hypoalbuminemia Code(s): E88.09 - OTH DISORDERS OF PLASMA-PROTEIN METABOLISM, NEC Status: Chronic - Plan cont current plan of care, plan discussed w/ family, continue antibiotics * pt wants himself as DNR and daughter is MPOA * continue current medical treatment * symptomatic treatment * ambulate as tolerated * transfer to medical. * dc ivf Review of Systems - Review of Systems ENT: negative: Ear Pain, Ear Discharge, Nose Pain, Nose Discharge, Nose Congestion, Mouth Pain, Mouth Swelling, Throat Pain, Throat Swelling, Other Respiratory: negative: Cough, Dry, Shortness of Breath, Hemoptysis, SOB with Excertion, Pleuritic Pain, Sputum, Wheezing Cardiovascular: negative: chest pain, palpitations, orthopnea, paroxysmal nocturnal dyspnea, edema, light headedness, other Gastrointestinal: negative: Nausea, Vomiting, Abdominal Pain, Diarrhea, Constipation, Melena, Hematochezia, Other Genitourinary: negative: Dysuria, Frequency, Incontinence, Hematuria, Retention , Other Musculoskeletal: negative: Neck Pain, Shoulder Pain, Arm Pain, Back Pain, Hand Pain, Leg Pain, Foot Pain, Other Skin: negative: Rash, Lesions, Jimmy, Bruising, Other - Medications/Allergies Allergies/Adverse Reactions: Allergies Allergy/AdvReac Type Severity Reaction Status Date / Time No Known Drug Allergies Allergy Verified 01/09/19 16:41 Medications: Current Medications Acetaminophen (Tylenol) 500 mg PO Q6H PRN PRN Reason: Fever or Pain Last Admin: 01/12/19 08:46 Dose: 500 mg Artificial Tears (Tears Naturale) 2 drop EA EYE PRN PRN PRN Reason: Dry Eyes Cyanocobalamin (Vitamin B-12) 1,000 mcg PO DAILY [facility] Last Admin: 01/12/19 08:32 Dose: 1,000 mcg Folic Acid (Folvite) 1 mg PO DAILY [facility] Last Admin: 01/12/19 08:32 Dose: 1 mg Guaifenesin (Robitussin Sf) 200 mg PO Q4H PRN PRN Reason: Cough Ceftriaxone Sodium 1 gm/ (Sodium Chloride) 100 mls @ 200 mls/hr IVPB Q24HR [facility] Stop: 01/13/19 23:59 Last Admin: 01/12/19 08:32 Dose: 100 mls Sodium Chloride (Normal Saline 0.9%) 1,000 mls @ 70 mls/hr IV .[id number] [facility] Last Admin: 01/11/19 20:19 Dose: 1,000 mls Iron/Minerals/Multivitamins (Theragran M) 1 tab PO DAILY [facility] Last Admin: 01/12/19 08:32 Dose: 1 tab Lactulose (Lactulose) 20 gm PO TID [facility] Last Admin: 01/12/19 08:33 Dose: 20 gm Mineral Oil/White Petrolatum (Eucerin Cream) 0 gm TOP BIDPRN PRN PRN Reason: Dry Skin Ondansetron HCl (Zofran Odt) 4 mg SL Q6H PRN PRN Reason: Nausea/Vomiting Ondansetron HCl (Zofran) 4 mg IVP Q6H PRN PRN Reason: Nausea/Vomiting Pantoprazole Sodium (Protonix) 40 mg IVP Q12HR [facility] Last Admin: 01/12/19 08:32 Dose: 40 mg Potassium Chloride (K-Dur) 40 meq PO NOW [facility] Stop: 01/12/19 10:30 Last Admin: 01/12/19 08:31 Dose: 40 meq Rifaximin (Xifaxan) 550 mg PO BID [facility] Last Admin: 01/12/19 08:32 Dose: 550 mg Sodium Chloride (Flush - Normal Saline) 10 ml IVF Q12HR [facility] Last Admin: 01/12/19 08:32 Dose: 10 ml Sodium Chloride (Flush - Normal Saline) 10 ml IVF PRN PRN PRN Reason: Saline Flush Sodium Chloride ([place] Nasal [place] 0.65%) 0 ml EA NARE QIDPRN PRN PRN Reason: Nasal Congestion Thiamine HCl (Thiamine) 100 mg PO DAILY [facility] Last Admin: 01/12/19 08:32 Dose: 100 mg Throat Lozenges (Cepastat Lozenges) 1 baltazar PO Q2H PRN PRN Reason: Sore Throat
--- NOTE | 2019-01-12 13:16 | PRG ---
DATE OF SERVICE: 01/12/2019 SUBJECTIVE: Mr. Park has had no further overt bleeding today. He has had some lower abdominal pain and cramping in his calf, but otherwise no acute complaints. He did get up and ambulate with physical therapy today. His mental status is improved today. OBJECTIVE: VITAL SIGNS: Temperature 97.4, pulse 76, and blood pressure 101/55. GENERAL: He is in no acute distress. He is alert and oriented x3. EYES: Have no scleral icterus. Oropharynx is clear without lesions. LUNGS: Clear to auscultation bilaterally. HEART: Regular rate and rhythm without murmur. ABDOMEN: Soft, nontender, and nondistended. Bowel sounds are present. EXTREMITIES: No lower extremity edema. NEUROLOGIC: No asterixis on neurological exam. LABORATORY DATA: White blood cell count 3.1, hemoglobin 7.4, and platelets 60. INR 1.5 two days ago. Creatinine is 0.63, bilirubin 1.8, AST 104, ALT 84, and albumin 2.4. AFP was 2.9. IMPRESSION: 1. Decompensated cirrhosis with active alcohol use. Again, the importance of alcohol cessation was discussed with him and his family. 2. Hepatic encephalopathy, doing better today now on lactulose and Xifaxan. 3. Alcohol abuse. RECOMMENDATIONS: 1. Alcohol cessation again advised. 2. Low-salt diet. 3. Continue rifaximin and lactulose. 4. Octreotide was discontinued yesterday. 5. Change to oral pantoprazole today. 6. If his hemoglobin is stable, I would anticipate discharge home tomorrow. 7. I will give him 1 unit transfusion today given that he is very weak and had variceal bleed and his hemoglobin is down to 7.4 today. Really, his hemoglobin is stable from yesterday with a drop from 7.6 to 7.4. Job ID: [id number]
[2019-01-13] MEDS: cefTRIAXone\\ROCEPHIN 1 GM in Sodium Chloride 0.9% 100 ML IVPB SCH (08:19)
[2019-01-13] MEDS: Thiamine 100 MG TAB PO SCH (08:20)
[2019-01-13] MEDS: Rifaximin 550 MG TAB PO SCH ×2 (08:20→20:35)
[2019-01-13] MEDS: Multivitamin W/ Minerals 1 TAB PO SCH (08:20)
[2019-01-13] MEDS: Cyanocobalamin (Vitamin B-12) 1,000 MCG TAB PO SCH (08:21)
[2019-01-13] MEDS: Folic Acid 1 MG TAB PO SCH (08:21)
[2019-01-13 08:58] LABS: Anion Gap 8 mmol/L (10-20); BUN (Urea Nitrogen) 6 mg/dL (8.4-25.7); Calc. Creatinine Clearance 143 mL/min (70-130); Calcium 7.7 mg/dL (7.8-10.44); Carbon Dioxide 25 mmol/L (22-29); Chloride 108 mmol/L (98-107); Estimated GFR-MDRD Greater than 90; Glucose 119 mg/dL (70-105); Potassium 3.5 mmol/L (3.5-5.1); Sodium 137 mmol/L (136-145)
[2019-01-13 09:02] LABS: Band 5 % (5-11); Eosinophils 1 % (0-10); Hemoglobin 9.6 g/dL (14.0-18.0); Lymphocytes 19 % (21-51); MDiff Complete? YES; Mean Corpuscular HGB CONC 33.2 g/dL (32.0-36.0); Mean Corpuscular Hemoglobin 32.7 pg (27.0-31.0); Mean Corpuscular Volume 98.4 fL (78.0-98.0); Mean Platelet Volume 8.1 fL (7.4-10.4); Monocytes 6 % (0-10); Neutrophil 68 % (42-75); Platelet Count 69 thou/uL (130-400); Platelet Morphology Comment Appears Decreased; RBC Distribution Width 14.5 % (11.5-14.5); Red Blood Cell (RBC) Count 2.93 mill/uL (4.70-6.10); White Blood Cell (WBC) Count 2.6 thou/uL (4.8-10.8)
--- NOTE | 2019-01-13 09:55 | PDOC.PN ---
- Subjective Encounter Start Date: 01/13/19 Encounter Start Time: 09:00 Patient seen and examined. No new complaints. No overnight events - Objective Resuscitation Status - Order Detail: 01/12/19 10:25 Resuscitation Status Routine Resuscitation Status: DNAR: NO Resuscitation Discussed with: discussed with pt MAR Reviewed: Yes Vital Signs & Weight: Vital Signs (12 hours) Temp Pulse Resp BP Pulse Ox 01/13/19 08:35 94 L 01/13/19 07:34 98.9 F 75 16 112/69 94 L 01/13/19 04:00 99.1 F 86 16 105/70 97 01/13/19 00:00 98.7 F 76 16 106/63 94 L Weight Weight 174 lb 2.643 oz Most Recent Monitor Data Heart Rate from ECG 72 NIBP 100/63 NIBP BP-Mean 75 Respiration from ECG 24 SpO2 99 I&O: 01/12/19 01/13/19 01/14/19 06:59 06:59 06:59 Intake Total 2385.8 2009 Output Total 990 Balance 1395.8 2009 Result Diagrams: 01/13/19 08:26 01/13/19 08:27 Phys Exam - Physical Examination Constitutional: NAD HEENT: PERRLA, moist MMs, sclera anicteric Neck: no JVD, supple Respiratory: no wheezing, no rales, no rhonchi Cardiovascular: RRR, no significant murmur, no rub Gastrointestinal: soft, non-tender, no distention, positive bowel sounds Musculoskeletal: no edema, pulses present Neurological: non-focal, normal sensation Lymphatic: no nodes Psychiatric: normal affect, A&O x 3 Skin: no rash, normal turgor Dx/Plan (1) Acute respiratory failure Code(s): J96.00 - ACUTE RESPIRATORY FAILURE, UNSP W HYPOXIA OR HYPERCAPNIA Status: Resolved (2) Anemia due to acute blood loss Code(s): D62 - ACUTE POSTHEMORRHAGIC ANEMIA Status: Acute (3) GI bleed Code(s): K92.2 - GASTROINTESTINAL HEMORRHAGE, UNSPECIFIED Status: Resolved (4) Hypomagnesemia Code(s): E83.42 - HYPOMAGNESEMIA Status: Resolved (5) Abnormal LFTs Code(s): R94.5 - ABNORMAL RESULTS OF LIVER FUNCTION STUDIES Status: Chronic (6) Alcohol abuse Code(s): F10.10 - ALCOHOL ABUSE, UNCOMPLICATED Status: Chronic (7) Alcoholic cirrhosis of liver Code(s): K70.30 - ALCOHOLIC CIRRHOSIS OF LIVER WITHOUT ASCITES Status: Chronic (8) Coagulopathy Status: Chronic (9) GERD (gastroesophageal reflux disease) Code(s): K21.9 - GASTRO-ESOPHAGEAL REFLUX DISEASE WITHOUT ESOPHAGITIS Status: Chronic (10) Hypertension Code(s): I10 - ESSENTIAL (PRIMARY) HYPERTENSION Status: Chronic (11) Hypoalbuminemia Code(s): E88.09 - OTH DISORDERS OF PLASMA-PROTEIN METABOLISM, NEC Status: Chronic - Plan cont current plan of care, plan discussed w/ family, continue antibiotics * ambulate * continue current medical treatment * symptomatic treatment * overall stable and improving , has mild odynophagia but will get better. Review of Systems - Review of Systems ENT: negative: Ear Pain, Ear Discharge, Nose Pain, Nose Discharge, Nose Congestion, Mouth Pain, Mouth Swelling, Throat Pain, Throat Swelling, Other Respiratory: negative: Cough, Dry, Shortness of Breath, Hemoptysis, SOB with Excertion, Pleuritic Pain, Sputum, Wheezing Cardiovascular: negative: chest pain, palpitations, orthopnea, paroxysmal nocturnal dyspnea, edema, light headedness, other Gastrointestinal: negative: Nausea, Vomiting, Abdominal Pain, Diarrhea, Constipation, Melena, Hematochezia, Other Genitourinary: negative: Dysuria, Frequency, Incontinence, Hematuria, Retention , Other Musculoskeletal: negative: Neck Pain, Shoulder Pain, Arm Pain, Back Pain, Hand Pain, Leg Pain, Foot Pain, Other - Medications/Allergies Allergies/Adverse Reactions: Allergies Allergy/AdvReac Type Severity Reaction Status Date / Time No Known Drug Allergies Allergy Verified 01/09/19 16:41 Medications: Current Medications Acetaminophen (Tylenol) 500 mg PO Q6H PRN PRN Reason: Fever or Pain Last Admin: 01/12/19 20:47 Dose: 500 mg Artificial Tears (Tears Naturale) 2 drop EA EYE PRN PRN PRN Reason: Dry Eyes Cyanocobalamin (Vitamin B-12) 1,000 mcg PO DAILY [facility] Last Admin: 01/13/19 08:21 Dose: 1,000 mcg Folic Acid (Folvite) 1 mg PO DAILY [facility] Last Admin: 01/13/19 08:21 Dose: 1 mg Guaifenesin (Robitussin Sf) 200 mg PO Q4H PRN PRN Reason: Cough Ceftriaxone Sodium 1 gm/ (Sodium Chloride) 100 mls @ 200 mls/hr IVPB Q24HR [facility] Stop: 01/13/19 23:59 Last Admin: 01/13/19 08:19 Dose: 100 mls Iron/Minerals/Multivitamins (Theragran M) 1 tab PO DAILY [facility] Last Admin: 01/13/19 08:20 Dose: 1 tab Lactulose (Lactulose) 20 gm PO TID [facility] Last Admin: 01/13/19 08:20 Dose: 20 gm Mineral Oil/White Petrolatum (Eucerin Cream) 0 gm TOP BIDPRN PRN PRN Reason: Dry Skin Ondansetron HCl (Zofran Odt) 4 mg SL Q6H PRN PRN Reason: Nausea/Vomiting Ondansetron HCl (Zofran) 4 mg IVP Q6H PRN PRN Reason: Nausea/Vomiting Pantoprazole Sodium (Protonix) 40 mg PO Q12HR [facility] Last Admin: 01/13/19 08:20 Dose: 40 mg Rifaximin (Xifaxan) 550 mg PO BID [facility] Last Admin: 01/13/19 08:20 Dose: 550 mg Sodium Chloride (Flush - Normal Saline) 10 ml IVF Q12HR [facility] Last Admin: 01/13/19 08:21 Dose: 10 ml Sodium Chloride (Flush - Normal Saline) 10 ml IVF PRN PRN PRN Reason: Saline Flush Sodium Chloride ([place] Nasal [place] 0.65%) 0 ml EA NARE QIDPRN PRN PRN Reason: Nasal Congestion Thiamine HCl (Thiamine) 100 mg PO DAILY [facility] Last Admin: 01/13/19 08:20 Dose: 100 mg Throat Lozenges (Cepastat Lozenges) 1 baltazar PO Q2H PRN PRN Reason: Sore Throat
--- NOTE | 2019-01-13 16:38 | PRG ---
DATE OF SERVICE: 01/13/2019 SUBJECTIVE: Mr. Park had one green stool today. No overt bleeding. No nausea or vomiting, or abdominal pain. OBJECTIVE: VITAL SIGNS: Temperature 98.9, pulse 75, blood pressure 112/69. GENERAL: He is in no acute distress. He is awake and alert. LUNGS: Clear to auscultation bilaterally. HEART: Regular rate and rhythm without murmur. ABDOMEN: Soft, mildly distended. Bowel sounds are present. EXTREMITIES: No lower extremity edema. NEUROLOGIC: Cranial nerves are grossly intact. No asterixis. LABORATORY DATA: White blood cell count 2.6, hemoglobin 9.6 up from 7.4 yesterday after 1 unit of transfusion, platelets 69,000. INR 1.5. Creatinine 0.65, bilirubin 1.8, AST 104, ALT 84, albumin 2.4. IMPRESSION: 1. Alcoholic cirrhosis, decompensated. Still actively drinking up until this hospital stay. He was encouraged to stop all alcohol use. 2. Hepatic encephalopathy, improved with lactulose and Xifaxan. 3. He has been on SBP prophylaxis with ceftriaxone due to the GI bleed. This should be able to be discontinued tomorrow. 4. Varicella bleeds status post banding of esophageal varices. His hemoglobin improved more than would be expected with 1 unit transfusion yesterday. RECOMMENDATIONS: 1. Low-salt diet. 2. Anticipate discharge home tomorrow. 3. He can follow up in the office with Dr. Laird. Job ID: [id number]
[2019-01-13] MEDS: Acetaminophen 500 MG TAB PO PRN (18:15)
[2019-01-14] MEDS: Acetaminophen 500 MG TAB PO PRN (00:26)
[2019-01-14] MEDS: Rifaximin 550 MG TAB PO SCH (08:51)
[2019-01-14] MEDS: Thiamine 100 MG TAB PO SCH (08:52)
[2019-01-14] MEDS: Folic Acid 1 MG TAB PO SCH (08:52)
[2019-01-14] MEDS: Multivitamin W/ Minerals 1 TAB PO SCH (08:52)
[2019-01-14] MEDS: Cyanocobalamin (Vitamin B-12) 1,000 MCG TAB PO SCH (08:52)
--- NOTE | 2019-01-14 10:17 | PDOC.PN ---
- Subjective Encounter Start Date: 01/14/19 Encounter Start Time: 09:20 Patient seen and examined. No new complaints. No overnight events - Objective Resuscitation Status - Order Detail: 01/12/19 10:25 Resuscitation Status Routine Resuscitation Status: DNAR: NO Resuscitation Discussed with: discussed with pt MAR Reviewed: Yes Vital Signs & Weight: Vital Signs (12 hours) Temp Pulse Resp BP Pulse Ox 01/14/19 08:58 97 01/14/19 08:00 98 F 71 18 108/64 97 01/14/19 04:00 98.1 F 80 16 116/72 96 01/14/19 00:27 98.4 F 80 16 111/70 96 Weight Weight 174 lb 2.643 oz Most Recent Monitor Data Heart Rate from ECG 72 NIBP 100/63 NIBP BP-Mean 75 Respiration from ECG 24 SpO2 99 I&O: 01/13/19 01/14/19 01/15/19 06:59 06:59 06:59 Intake Total 2009 480 Balance 2009 480 Result Diagrams: 01/13/19 08:26 01/13/19 08:27 Phys Exam - Physical Examination Constitutional: NAD HEENT: PERRLA, moist MMs, sclera anicteric Neck: no JVD, supple Respiratory: no wheezing, no rales, no rhonchi Cardiovascular: RRR, no significant murmur, no rub Gastrointestinal: soft, non-tender, no distention, positive bowel sounds Musculoskeletal: no edema, pulses present Neurological: non-focal, normal sensation Psychiatric: normal affect, A&O x 3 Skin: no rash, normal turgor Dx/Plan (1) Acute respiratory failure Code(s): J96.00 - ACUTE RESPIRATORY FAILURE, UNSP W HYPOXIA OR HYPERCAPNIA Status: Resolved (2) Anemia due to acute blood loss Code(s): D62 - ACUTE POSTHEMORRHAGIC ANEMIA Status: Acute (3) GI bleed Code(s): K92.2 - GASTROINTESTINAL HEMORRHAGE, UNSPECIFIED Status: Resolved (4) Hypomagnesemia Code(s): E83.42 - HYPOMAGNESEMIA Status: Resolved (5) Abnormal LFTs Code(s): R94.5 - ABNORMAL RESULTS OF LIVER FUNCTION STUDIES Status: Chronic (6) Alcohol abuse Code(s): F10.10 - ALCOHOL ABUSE, UNCOMPLICATED Status: Chronic (7) Alcoholic cirrhosis of liver Code(s): K70.30 - ALCOHOLIC CIRRHOSIS OF LIVER WITHOUT ASCITES Status: Chronic (8) Coagulopathy Status: Chronic (9) GERD (gastroesophageal reflux disease) Code(s): K21.9 - GASTRO-ESOPHAGEAL REFLUX DISEASE WITHOUT ESOPHAGITIS Status: Chronic (10) Hypertension Code(s): I10 - ESSENTIAL (PRIMARY) HYPERTENSION Status: Chronic (11) Hypoalbuminemia Code(s): E88.09 - OTH DISORDERS OF PLASMA-PROTEIN METABOLISM, NEC Status: Chronic - Plan cont current plan of care, plan discussed w/ family * medication reviewed as below * symptomatic treatment * see discharge summery. Review of Systems - Review of Systems ENT: negative: Ear Pain, Ear Discharge, Nose Pain, Nose Discharge, Nose Congestion, Mouth Pain, Mouth Swelling, Throat Pain, Throat Swelling, Other Respiratory: negative: Cough, Dry, Shortness of Breath, Hemoptysis, SOB with Excertion, Pleuritic Pain, Sputum, Wheezing Cardiovascular: negative: chest pain, palpitations, orthopnea, paroxysmal nocturnal dyspnea, edema, light headedness, other Gastrointestinal: negative: Nausea, Vomiting, Abdominal Pain, Diarrhea, Constipation, Melena, Hematochezia, Other Genitourinary: negative: Dysuria, Frequency, Incontinence, Hematuria, Retention , Other Musculoskeletal: negative: Neck Pain, Shoulder Pain, Arm Pain, Back Pain, Hand Pain, Leg Pain, Foot Pain, Other Skin: negative: Rash, Lesions, Jimmy, Bruising, Other - Medications/Allergies Allergies/Adverse Reactions: Allergies Allergy/AdvReac Type Severity Reaction Status Date / Time No Known Drug Allergies Allergy Verified 01/09/19 16:41 Medications: Current Medications Acetaminophen (Tylenol) 500 mg PO Q6H PRN PRN Reason: Fever or Pain Last Admin: 01/14/19 00:26 Dose: 500 mg Artificial Tears (Tears Naturale) 2 drop EA EYE PRN PRN PRN Reason: Dry Eyes Cyanocobalamin (Vitamin B-12) 1,000 mcg PO DAILY NELLY Last Admin: 01/14/19 08:52 Dose: 1,000 mcg Folic Acid (Folvite) 1 mg PO DAILY NELLY Last Admin: 01/14/19 08:52 Dose: 1 mg Guaifenesin (Robitussin Sf) 200 mg PO Q4H PRN PRN Reason: Cough Iron/Minerals/Multivitamins (Theragran M) 1 tab PO DAILY [facility] Last Admin: 01/14/19 08:52 Dose: 1 tab Lactulose (Lactulose) 20 gm PO TID [facility] Last Admin: 01/14/19 08:53 Dose: 20 gm Mineral Oil/White Petrolatum (Eucerin Cream) 0 gm TOP BIDPRN PRN PRN Reason: Dry Skin Ondansetron HCl (Zofran Odt) 4 mg SL Q6H PRN PRN Reason: Nausea/Vomiting Ondansetron HCl (Zofran) 4 mg IVP Q6H PRN PRN Reason: Nausea/Vomiting Pantoprazole Sodium (Protonix) 40 mg PO Q12HR [facility] Last Admin: 01/14/19 08:52 Dose: 40 mg Rifaximin (Xifaxan) 550 mg PO BID [facility] Last Admin: 01/14/19 08:51 Dose: 550 mg Sodium Chloride (Flush - Normal Saline) 10 ml IVF Q12HR [facility] Last Admin: 01/14/19 08:53 Dose: 10 ml Sodium Chloride (Flush - Normal Saline) 10 ml IVF PRN PRN PRN Reason: Saline Flush Sodium Chloride ([place] Nasal [place] 0.65%) 0 ml EA NARE QIDPRN PRN PRN Reason: Nasal Congestion Thiamine HCl (Thiamine) 100 mg PO DAILY [facility] Last Admin: 01/14/19 08:52 Dose: 100 mg Throat Lozenges (Cepastat Lozenges) 1 baltazar PO Q2H PRN PRN Reason: Sore Throat
[2019-01-14 11:22] VITALS: BP 120/74; TEMP 98.7
[2019-01-14 13:11] LABS: Smooth Muscle Total ABS 28 Units (0-19)
--- NOTE | 2019-01-14 14:32 | DIS ---
DATE OF ADMISSION: 01/09/2019 DATE OF DISCHARGE: 01/14/2019 PRIMARY CARE PHYSICIAN: [facility] Call admission. DISCHARGE DISPOSITION: Home. PRIMARY DISCHARGE DIAGNOSES: 1. Acute upper gastrointestinal bleed due to varices. 2. Anemia due to acute blood loss. 3. Hypokalemia. 4. Pancytopenia. 5. Acute respiratory failure. 6. Hypomagnesemia. SECONDARY DISCHARGE DIAGNOSES: Alcohol abuse, hypoalbuminemia, coagulopathy, gastroesophageal reflux disease, alcoholic cirrhosis of liver, hypertension, and abnormal LFT. PRIMARY PROCEDURE/OPERATION: Dr. Laird did an upper endoscopy and found with esophageal varices. Banding was performed. Postprocedure, the patient remained intubated. RADIOLOGICAL INVESTIGATION: Abdomen and pelvis CT scan and chest x-ray. SIGNIFICANT LABORATORY DATA: Hemoglobin 9.6. INR 1.5. Creatinine 0.65. DISCHARGE MEDICATIONS: 1. Cipro 500 mg p.o. b.i.d. for 5 days. 2. Protonix 40 mg p.o. b.i.d. 3. Vitamin B12 of 1000 mcg p.o. daily. 4. Folic acid 1 mg p.o. daily. 5. Lactulose 20 g p.o. b.i.d. 6. Multivitamin 1 tablet p.o. daily. 7. Thiamine 100 mg p.o. daily. 8. Corgard 20 mg p.o. daily. CONTRAINDICATION: None. CODE STATUS: DNR. INPATIENT CONSULTANTS: Dr. Laird was following while in hospital. Pulmonary group was following for vent management. TEST RESULTS PENDING ON DISCHARGE: None. ALLERGIES: NO KNOWN DRUG ALLERGIES. DISCHARGE PLAN: Posthospital, the patient will follow up with Dr. Laird and primary care physician as instructed. HOSPITAL COURSE: A 53-year-old male with above-mentioned medical problem, who was admitted by Dr. Cespedes. Please see his H and P for further details. This patient was having acute upper GI bleed from variceal bleeding and he was admitted in ICU. He required upper endoscopy and he had a varicella banding performed. Postprocedure, he remained intubated. He had mild encephalopathy and that is why he remained intubated for a couple of days and then he was extubated. He was treated with octreotide drip, Protonix drip and banana bag. Subsequently, octreotide drip was discontinued and Protonix changed to p.o. He was also given SBP prophylaxis with Rocephin. On discharge, we changed to p.o. ciprofloxacin. We also provided Corgard on discharge. Rest of medication was continued as per previous. Multivitamins including folic acid and B12 were prescribed. Counseling is given to avoid alcohol abuse. He will follow up with medical records coder for further evaluation. The patient is seen and examined at bedside today. Please see my progress note from today for further detail. Job ID: [id number]
== END 2019-01-14 12:15 | disposition home or self-care (01) | DRG 432 ==
LOC: ERS 08:08 → SDC 15:51 → CCU 16:21 → 2NO 01-11 18:41 → T4-A 01-12 12:19
PROVIDERS: ADMIT Internal Medicine; ATTEND Internal Medicine
PROC: 06L38CZ Occlusion of Esophageal Vein with Extraluminal Device, Via Natural or Artificial Opening Endoscopic (ICD-10-PCS; principal; 2019-01-09)
PROC: 30233N1 Transfusion of Nonautologous Red Blood Cells into Peripheral Vein, Percutaneous Approach (ICD-10-PCS; 2019-01-09)
PROC: 30233N1 Transfusion of Nonautologous Red Blood Cells into Peripheral Vein, Percutaneous Approach (ICD-10-PCS; 2019-01-12)
DX: K70.30 Alcoholic cirrhosis of liver without ascites (principal); I85.11 Secondary esophageal varices with bleeding; J96.00 Acute respiratory failure, unspecified whether with hypoxia or hypercapnia; K92.0 Hematemesis; K76.6 Portal hypertension; D62 Acute posthemorrhagic anemia; D61.818 Other pancytopenia; D68.9 Coagulation defect, unspecified; I10 Essential (primary) hypertension; K21.9 Gastro-esophageal reflux disease without esophagitis; Z66 Do not resuscitate; F17.210 Nicotine dependence, cigarettes, uncomplicated; K70.10 Alcoholic hepatitis without ascites; K72.90 Hepatic failure, unspecified without coma; D69.6 Thrombocytopenia, unspecified; D73.1 Hypersplenism; E87.6 Hypokalemia; E83.42 Hypomagnesemia; E88.09 Other disorders of plasma-protein metabolism, not elsewhere classified; F10.129 Alcohol abuse with intoxication, unspecified; Y90.0 Blood alcohol level of less than 20 mg/100 ml; Z80.0 Family history of malignant neoplasm of digestive organs; Z82.49 Family history of ischemic heart disease and other diseases of the circulatory system
CPT/HCPCS: 36415; 36430; 71045; 74177; 80048; 80053; 80074; 80307; 82105; 82140; 82274; 82805; 83516; 83735; 84100; 85025; 85610; 85730; 86038; 86225; 86706; 86708; 86850; 86900; 86901; 93005; 94002; 94003; 96361; 96365; 96366; 96367; 96375; C9113; J0696; J0744; J1100; J2001; J2060; J2250; J2270; J2354; J2405; J2704; J3411; J3475; J3490; J7042; J7050; P9016; Q9966

== ENCOUNTER 2019-03-06 21:34 | Inpatient (IN) | payer SELFPAY ==
[2019-03-06] MEDS ORDERED: Pantoprazole 40 MG VIAL ONE (22:26)
[2019-03-07] MEDS ORDERED: Morphine 2 MG/ML SYRINGE ONE (01:42)
[2019-03-07] MEDS ORDERED: Ondansetron PF 4 MG/2 ML Vial ONE (01:44)
[2019-03-07] MEDS ORDERED: Octreotide Acetate 1,250 MCG in Sodium Chloride 0.9% 250 ML 250 ML IVPB SCH (11:00)
[2019-03-07] MEDS ORDERED: GoLYTELY 4,000 ml Bottle PO SCH (11:15)
[2019-03-07 11:27] LABS: INR-International Normal Ratio 1.3; PTT 35.6 SEC (22.9-36.1); Prothrombin Time 16.6 SEC (12.0-14.7)
[2019-03-07 11:28] LABS: Hemoglobin 10.2 g/dL (14.0-18.0); Mean Corpuscular HGB CONC 31.1 g/dL (32.0-36.0); Mean Corpuscular Hemoglobin 25.3 pg (27.0-31.0); Mean Corpuscular Volume 81.3 fL (78.0-98.0); Red Blood Cell (RBC) Count 4.02 mill/uL (4.70-6.10); White Blood Cell (WBC) Count 2.6 thou/uL (4.8-10.8)
[2019-03-07 11:29] LABS: #Basophils 0.1 thou/uL (0.0-0.2); #Eosinphils 0.1 thou/uL (0.0-0.7); #Lymphocytes 0.9 thou/uL (1.20-3.40); #Monocytes 0.3 thou/uL (0.11-0.59); #Neutrophils 1.3 thou/uL (1.40-6.50); %Basophils 2.3 % (0.0-1.0); %Eosinophils 2.2 % (0.0-10.0); %Lymphocytes 33.9 % (21.0-51.0); %Monocytes 12.2 % (0.0-10.0); %Neutrophils 49.4 % (42.0-75.0); Mean Platelet Volume 5.9 fL (7.4-10.4); Platelet Count 84 thou/uL (130-400)
[2019-03-07 11:30] LABS: Anisocytosis SLIGHT = 6-15 cells (100X) (0-5/hpf); Hypochromia SLIGHT = 6-15 cells (100X) (0-5/hpf); Platelet Morphology Comment Appears Decreased
[2019-03-07] MEDS: cefTRIAXone\\ROCEPHIN 1 GM in Sodium Chloride 0.9% 100 ML IVPB SCH (11:46)
[2019-03-07] MEDS: Sodium Chloride 0.9% 1,000 ML IV SCH (11:48)
[2019-03-07 11:49] VITALS: BMI 25.2
[2019-03-07] MEDS: Multivitamins, Adult 10 ML, Folic Acid 1 MG, Thiamine HCl 100 MG in Dextrose 5 %-0.45 %... IV SCH (12:03)
--- NOTE | 2019-03-07 12:49 | RAD ---
CHEST ONE VIEW: HISTORY: Rectal bleeding. COMPARISON: 01/10/2019 FINDINGS: Normal cardiac silhouette. The pulmonary vessels and hilum are normal. The costophrenic angles are clear. Possible bibasilar [id number]-left infiltrates. No pneumothorax or osseous abnormali ties. IMPRESSION: Possible bibasilar [id number]-left infiltrates. POS: [facility]
[2019-03-07 16:26] LABS: Hemoglobin 10.2 g/dL (14.0-18.0)
[2019-03-07 17:02] LABS: ALT (SGPT) 25 U/L (8-55); AST (SGOT) 56 U/L (5-34); Albumin 3.8 g/dL (3.5-5.0); Alkaline Phosphatase 96 U/L (40-150); Anion Gap 14 mmol/L (10-20); BUN (Urea Nitrogen) 4 mg/dL (8.4-25.7); Bilirubin, Total 1.2 mg/dL (0.2-1.2); Calc. Creatinine Clearance 127 mL/min (70-130); Calcium 8.6 mg/dL (7.8-10.44); Carbon Dioxide 21 mmol/L (22-29); Chloride 109 mmol/L (98-107); Estimated GFR-MDRD Greater than 90; Globulin 4.4 g/dL (2.4-3.5); Glucose 101 mg/dL (70-105); Potassium 3.5 mmol/L (3.5-5.1); Protein, Total 8.2 g/dL (6.0-8.3); Sodium 140 mmol/L (136-145)
[2019-03-07 20:42] LABS: Hemoglobin 10.1 g/dL (14.0-18.0)
[2019-03-07] MEDS: Pantoprazole 40 MG VIAL IVP SCH (21:00)
[2019-03-08 02:34] LABS: Hemoglobin 9.3 g/dL (14.0-18.0)
--- NOTE | 2019-03-08 06:35 | PDOC.PN ---
- Subjective Encounter Start Date: 03/08/19 Encounter Start Time: 06:30 pt was sleeping in bed when I arrived. Was doing better with epigastric pain resolving after Protonix was given last night. Will get EGD and colonoscopy with esophageal variceal banding later this morning with Dr. Laird . Has been NPO since arrival yesterday. Denies pain and lightheadedness and has no new complaints. - Objective Resuscitation Status - Order Detail: 03/07/19 14:33 Resuscitation Status Routine Resuscitation Status: DNAR: NO Resuscitation Discussed with: patient Vital Signs & Weight: Vital Signs (12 hours) Temp Pulse Resp BP Pulse Ox 03/07/19 19:49 97.7 F 65 16 157/87 H 100 Weight Weight 77.337 kg I&O: 03/06/19 03/07/19 03/08/19 06:59 06:59 06:59 Intake Total 940 Balance 940 Result Diagrams: 03/08/19 02:25 03/06/19 22:27 Phys Exam - Physical Examination HEENT: PERRLA Respiratory: no wheezing, no rales, no rhonchi, clear to auscultation bilateral Cardiovascular: RRR, no significant murmur, no rub Gastrointestinal: soft, non-tender Psychiatric: normal affect Dx/Plan (1) Anemia due to acute blood loss Code(s): D62 - ACUTE POSTHEMORRHAGIC ANEMIA Status: Acute Comment: pt will get EGD and Colonoscopy this morning with Dr. Laird- Blood type was done yesterday in case pt Hgb/Hct decrease to the point where blood transfusion is needed. (2) Alcoholic cirrhosis of liver Code(s): K70.30 - ALCOHOLIC CIRRHOSIS OF LIVER WITHOUT ASCITES Status: Chronic (3) GERD (gastroesophageal reflux disease) Code(s): K21.9 - GASTRO-ESOPHAGEAL REFLUX DISEASE WITHOUT ESOPHAGITIS Status: Chronic Comment: pt was given protonix- I believe this is what was causing his epigastric pain - Plan cont current plan of care * . pt will get EGD and Colonoscopy with variceal banding later today with Dr. Laird pt will continue with octreotride, protonix, fluids, and banana bag. watch Hgb/Hct closely- note a downward trend H/H with most recent labs- down to 9.3 Hgb and 29.8 Hct - consider transfusion if Hgb drops below 7. reassess condition after Dr. Laird procedure
--- NOTE | 2019-03-08 08:30 | CON ---
DATE OF CONSULTATION: HISTORY OF PRESENT ILLNESS: I was asked to see Mr. Park about GI bleeding by the [facility] doctors. He has a history of GI hemorrhage from esophageal varices treated in late December of this year when he presented with intoxication and cirrhosis. He was found to have esophageal varices which were banded at that time. He actually was set up for a followup EGD as an outpatient, but could not get that done as he could not pay what the hospital wanted him to before the procedure, so that was canceled. He came to the emergency room last night with complaints of nosebleeds for the past week and some rectal bleeding, which is bright red and occasional black stool. He has not had any bleeding since admission per the nurses. He denies any fever or chills. He denies any development of ascites or edema. He has been drinking alcohol, his last drink he thinks is 2 days ago. They deny any drug use. PAST MEDICAL HISTORY: 1. Alcohol abuse, ongoing. 2. Cirrhosis, alcohol-related. Negative evaluation for autoimmune liver disease, infectious hepatitis, or iron, copper, alpha-1 antitrypsin related disease. PAST SURGICAL HISTORY: None. ALLERGIES: NONE KNOWN. FAMILY HISTORY: Heart disease in mother. Colon cancer in his father. SOCIAL HISTORY: The patient smokes. He drinks and still drinking alcohol. Denies drug use. REVIEW OF SYSTEMS: Negative for fever, chills, myalgias, arthralgias, weight loss, abdominal pain, chest pain, shortness of breath, dyspnea on exertion, rashes, dyspnea, dysuria, frequency, or urgency. MEDICATIONS: He is supposed to be taking thiamine, pantoprazole, Coreg, lactulose, folic acid, B12, but this unclear if he is taking those or not. For medications here, he is on nothing, no orders have been written since admission. PHYSICAL EXAMINATION: GENERAL: The patient is resting comfortably in bed. He has no distress. VITAL SIGNS: Temperature is 97, pulse 79, blood pressure 122/76. HEENT: He is icteric. He is not confused. NECK: Supple without any adenopathy. LUNGS: Clear. HEART: Regular rate and rhythm without clicks or murmurs. ABDOMEN: Soft. Slight shifting dullness, but no overt fluid wave. There is no palpable hepatosplenomegaly. EXTREMITIES: No clubbing, cyanosis, or edema. SKIN: Without rash, lesions, or edema. He has spider angiomas in the chest, palmar erythema. He has tattoos. LABORATORY STUDIES: White count is 2.6, hemoglobin 10.2, similar to 9.6 on discharge on 01/13. Platelets 84,000. Comprehensive metabolic profile showed essentially normal LFTs, mildly low albumin, stable BUN and creatinine. These are on the chart in printed fashion. Tox screen, I do not see done. ASSESSMENT: Gastrointestinal bleeding, it is very minimal at this time. He needs a followup EGD for banding. He reports some black stools, but the nurses have seen none. He has had some bright red blood per rectum, rectal outlet, but he has a family history of colorectal cancer in father and he has had a low MCV. He never had a colonoscopy in the past. PLAN: 1. We will recommend a bowel prep for EGD and colonoscopy, with repeat banding and colonoscopy at the same time. We will follow serial H and H. 2. We will start octreotide drip. 3. We will start Rocephin for GI bleeding . 4. We will start a PPI. 5. We will start a banana bag as continued alcohol use. 6. I have asked the nurse to make sure hospitalist can see the patient. He is being monitored also for withdrawals. Job ID: [id number]
[2019-03-08] MEDS: Pantoprazole 40 MG VIAL IVP SCH ×2 (09:28→20:41)
--- NOTE | 2019-03-08 09:58 | HP ---
CHIEF COMPLAINT: GI bleed. HISTORY OF PRESENT ILLNESS: The patient is a 53-year-old male with a history of cirrhotic liver disease and esophageal varices, status post recent banding procedure with Dr. Laird. The patient had continued to come back for outpatient rebanding procedure, but he subsequently developed evidence of lower GI bleeding. He had both reported hematochezia and melena. The patient subsequently presented to the emergency department. REVIEW OF SYSTEMS: He denies any significant fevers, chills, new ascites, or significant edema. All other systems reviewed. All pertinent positives and negatives noted in history of present illness. PAST MEDICAL HISTORY: Notable for alcoholic cirrhosis with related ascites. PAST SURGICAL HISTORY: Variceal banding. SOCIAL HISTORY: The patient continues to smoke. He continues to drink alcohol. Denies drug use. He is a DNR. FAMILY HISTORY: Father had colon cancer. His mother had some heart disease. ALLERGIES: NONE. HOME MEDICATIONS: 1. Thiamine 100 mg daily. 2. Protonix 40 mg b.i.d. 3. Nadolol 20 mg daily. 4. Multivitamin 1 daily. 5. Lactulose 20 b.i.d. 6. Folvite 1 mg daily. 7. B12 of 1000 mcg daily. 8. Cipro 500 mg q.12 hours. The patient has not filled some of these medications citing cost. PHYSICAL EXAMINATION: VITAL SIGNS: Temperature is 98.3, pulse 71, respirations 18, O2 saturation 98% on room air, and blood pressure 139/75. GENERAL APPEARANCE: Age-appropriate male. He is in no significant distress. He is awake, alert, taking bowel prep. HEENT: PERRL. He has a pterygium in the left medial limbus. He has no OP lesions. HEART: Regular rate and rhythm without murmurs. LUNGS: Clear to auscultation bilaterally. ABDOMEN: Soft, nontender, and nondistended. Possibly some slight ascites. EXTREMITIES: Has trace lower extremity peripheral edema. NEUROLOGIC: Intact. Appears to be fully cognitively intact. PSYCH: Normal affect and behavior. LABORATORY DATA: White count 2.6, hemoglobin 10.2, and platelets 84. INR is 1.3, PTT 35.6. Sodium 140, potassium 3.5, chloride 109, CO2 is 21, BUN 4, creatinine 0.72, glucose 101, AST 56, ALT is 25, and albumin 3.8. IMPRESSION AND PLAN: 1) Gastrointestinal bleed. Appears to have a relatively stable hemoglobin. He has been seen by GI, will undergo esophagogastroduodenoscopy to look for possible rebanding of esophageal varices. Given his hematologic indices and his family history of colon cancer, the plan will be to have colonoscopy at the same time. He has been started on octreotide drip and Rocephin. We will continue the PPI and banana bag for alcohol consumption. 2) Esophageal varicies. Status post banding. Now with possible recurrent bleed. Continue nadolol. Endoscopy. 3) EtOH abuse. Discussed with Dr. Laird. Patient was counseled at length regarding the fact that the continued alcohol use will result in his . Banana bag. Job ID: [id number] [facility]
[2019-03-08] MEDS: cefTRIAXone\\ROCEPHIN 1 GM in Sodium Chloride 0.9% 100 ML IVPB SCH (11:46)
[2019-03-08] MEDS: Multivitamins, Adult 10 ML, Folic Acid 1 MG, Thiamine HCl 100 MG in Dextrose 5 %-0.45 %... IV SCH (12:23)
[2019-03-08] MEDS ORDERED: Ondansetron HCl/PF 4 MG/2 ML Vial IVP PRN (15:52)
[2019-03-08] MEDS ORDERED: Promethazine HCl 25 MG/ML VIAL IM PRN (15:52)
[2019-03-08] MEDS ORDERED: Promethazine HCl 25 MG/ML VIAL SLOW IVP PRN (15:52)
[2019-03-08] MEDS ORDERED: PROPOFOL 200 MG/20 ML VIAL ONE (16:36)
[2019-03-08] MEDS ORDERED: Lidocaine 1% PF 5 ML VIAL ONE (16:36)
--- NOTE | 2019-03-08 17:16 | PDOC.PN ---
- Subjective Encounter Start Date: 03/08/19 Encounter Start Time: 17:15 Feels ok. No complaints. Tolerated the procedure well. - Objective Resuscitation Status - Order Detail: 03/07/19 14:33 Resuscitation Status Routine Resuscitation Status: DNAR: NO Resuscitation Discussed with: patient Vital Signs & Weight: Vital Signs (12 hours) Temp Pulse Resp BP Pulse Ox 03/08/19 16:37 97.7 F 65 16 150/83 H 99 03/08/19 08:04 98.0 F 70 16 123/81 98 Weight Admit Weight 170 lb 8 oz Weight 170 lb 8 oz I&O: 03/07/19 03/08/19 03/09/19 06:59 06:59 06:59 Intake Total 940 Balance 940 Result Diagrams: 03/08/19 02:25 03/06/19 22:27 Phys Exam - Physical Examination Constitutional: NAD Respiratory: no wheezing, no rales, no rhonchi Cardiovascular: RRR, no significant murmur Gastrointestinal: soft, non-tender, no distention, positive bowel sounds Musculoskeletal: no edema Dx/Plan (1) Colon polyp Code(s): K63.5 - POLYP OF COLON Status: Acute (2) Esophageal varices Code(s): I85.00 - ESOPHAGEAL VARICES WITHOUT BLEEDING Status: Acute (3) GI bleed Code(s): K92.2 - GASTROINTESTINAL HEMORRHAGE, UNSPECIFIED Status: Acute (4) Alcoholic cirrhosis of liver Code(s): K70.30 - ALCOHOLIC CIRRHOSIS OF LIVER WITHOUT ASCITES Status: Chronic (5) GERD (gastroesophageal reflux disease) Code(s): K21.9 - GASTRO-ESOPHAGEAL REFLUX DISEASE WITHOUT ESOPHAGITIS Status: Chronic Comment: pt was given protonix- I believe this is what was causing his epigastric pain (6) Hypertension Code(s): I10 - ESSENTIAL (PRIMARY) HYPERTENSION Status: Chronic - Plan * Had variceal banding and colon polyps removed. * No active bleeding. * Discussed with GI. * Recheck labs in am. * DC in am if ok. * Continue Banana bag.
--- NOTE | 2019-03-08 17:55 | OP ---
DATE OF PROCEDURE: 03/08/2019 PREPROCEDURE DIAGNOSES: 1. Rectal bleeding. 2. History of esophageal varices. 3. History of cirrhosis. 4. Ongoing alcohol abuse. POSTPROCEDURE DIAGNOSES: 1. Esophageal varices on two columns, grade 3, banded x3 with good ablation. 2. Otherwise normal esophagogastroduodenoscopy. 3. Colonoscopy notable for multiple polyps. There were three polyps in the ascending colon removed by snare polypectomy and submitted to Pathology. Two polyps in the descending colon, removed by snare polypectomy and submitted to Pathology. Two polyps in the sigmoid colon removed by snare polypectomy and submitted to Pathology and two polyps in the rectum, one of which was 2 cm in size and removed with saline-assisted snare polypectomy and tattooed and submitted to Pathology. The other polyp was diminutive. RECOMMENDATIONS: Await his pathology. Repeat colonoscopy will be determined based on pathology. ANESTHESIA: TIVA. DESCRIPTION OF PROCEDURE: The patient was informed of the risks, benefits, and possible complications of endoscopy including perforation, reaction to medication, and aspiration, informed consent was obtained. The patient was brought to the endoscopy suite, where he was sedated in gradual fashion. Once he was comfortable, a bite block placed inside the orifices. The endoscope was advanced through the esophagus, stomach, and second and third portion of the duodenum and slowly removed. There was good visualization of the mucosa. The esophagus was noted for two columns of grade 3 varices with no stigmata of bleeding, but there was a red odalis sign. The scope was advanced to the stomach, which was normal in forward and retroflexed views except for mild portal gastropathy in the duodenum, which was normal. The scope was then removed and a ligator band kit was applied, varices were banded x3 with good ablation. No bleeding. The scope was removed. The patient was turned in the room and a rectal exam was performed revealing a rectal mass. The endoscope was advanced into the anal canal through the colon. The cecum was identified by ileocecal valve and appendiceal orifice. Two polyps a centimeter to 5 mm in size were found in the ascending colon, removed by cold snare polypectomy. Two polyps were seen in descending colon, 0.5 to 1 cm in size, removed by cold snare polypectomy. Two sigmoid polyps about a centimeter in size each, removed by hot snare polypectomy, and two polyps in the rectum, one was 2 cm in size and polyp was raised with a 10 mL of saline and then removed and then site was tattooed. A second small 5 mm polyp was removed as well. These were all sent to Pathology. Retroflexed views were normal. The scope was removed. The patient tolerated the procedure well. There were no complications. Job ID: [id number]
[2019-03-08] MEDS ORDERED: Ondansetron PF 4 MG/2 ML Vial SLOW IVP PRN (18:43)
[2019-03-08] MEDS: Acetaminophen 325 MG TAB PO PRN (18:54)
[2019-03-08] MEDS: Sodium Chloride 0.9% 1,000 ML IV SCH (20:21)
[2019-03-08] MEDS: Promethazine HCl 25 MG/ML VIAL IM/IV PRN (20:39)
[2019-03-09] MEDS: Sodium Chloride 0.9% 1,000 ML IV SCH ×2 (02:34→14:07)
[2019-03-09 04:27] LABS: Anion Gap 9 mmol/L (10-20); BUN (Urea Nitrogen) 5 mg/dL (8.4-25.7); Calc. Creatinine Clearance 130 mL/min (70-130); Calcium 8.2 mg/dL (7.8-10.44); Carbon Dioxide 25 mmol/L (22-29); Chloride 108 mmol/L (98-107); Estimated GFR-MDRD Greater than 90; Glucose 105 mg/dL (70-105); Potassium 3.3 mmol/L (3.5-5.1); Sodium 139 mmol/L (136-145)
[2019-03-09 05:04] LABS: #Eosinphils 0.1 thou/uL (0.0-0.7); #Lymphocytes 0.6 thou/uL (1.20-3.40); #Monocytes 0.3 thou/uL (0.11-0.59); #Neutrophils 1.1 thou/uL (1.40-6.50); %Basophils 1.6 % (0.0-1.0); %Eosinophils 2.5 % (0.0-10.0); %Lymphocytes 28.6 % (21.0-51.0); %Monocytes 14.4 % (0.0-10.0); %Neutrophils 52.9 % (42.0-75.0); Anisocytosis SLIGHT = 6-15 cells (100X) (0-5/hpf); Hemoglobin 9.2 g/dL (14.0-18.0); Hypochromia SLIGHT = 6-15 cells (100X) (0-5/hpf); MDiff Complete? YES; Mean Corpuscular HGB CONC 30.7 g/dL (32.0-36.0); Mean Corpuscular Hemoglobin 25.4 pg (27.0-31.0); Mean Corpuscular Volume 82.7 fL (78.0-98.0); Mean Platelet Volume 7.4 fL (7.4-10.4); Platelet Count 69 thou/uL (130-400); Platelet Morphology Comment Appears Decreased; RBC Distribution Width 18.7 % (11.5-14.5); Red Blood Cell (RBC) Count 3.61 mill/uL (4.70-6.10)
[2019-03-09] MEDS: Pantoprazole 40 MG VIAL IVP SCH (08:50)
[2019-03-09] MEDS: Acetaminophen 325 MG TAB PO PRN (08:50)
[2019-03-09] MEDS: Promethazine HCl 25 MG/ML VIAL IM/IV PRN (08:56)
[2019-03-09 09:42] VITALS: BP 105/61; TEMP 97.6
--- NOTE | 2019-03-09 11:01 | PRG ---
DATE OF SERVICE: 03/09/2019 SUBJECTIVE: Mr. Park underwent upper and lower endoscopies yesterday with banding of varices and removal of several large polyps. He has had no further bleeding. He feels well. He is tolerating diet. OBJECTIVE: VITAL SIGNS: Temperature is 97.6, pulse 71, and blood pressure 105/61. ABDOMEN: Soft and nontender. There is no rebound or guarding. EXTREMITIES: There is no clubbing, cyanosis, or edema. LABORATORY STUDIES: White count is 2, hemoglobin 9.2, and platelet count 69,000. INR 1.3 on admission. Sodium 139, potassium 3.3, and BUN and creatinine are 5 and 0.7. ASSESSMENT: 1. Alcoholic cirrhosis. 2. Continued alcohol abuse. 3. Rectal bleeding, likely related to his hemorrhoids and possibly due to a large rectal polyp that was removed yesterday. 4. Nosebleeds related to liver disease and thrombocytopenia. 5. Varices were nonbleeding yesterday and were banded. RECOMMENDATIONS: 1. Advance diet as tolerated. I think he can be discharged home today with bleeding precautions. I have recommend he not drink alcohol anymore. Explained to him and his significant other. If he continues to drink alcohol, he will not live much longer as his liver cannot take it anymore. He does understand this and states he has cut back significantly, that he needs to stop completely. He understands he is going to try that. 2. He will need to have await his histopathology. We recommended repeat colonoscopy based on this finding. He does have a family history of colorectal cancer in the father. Need to return to the office in 1 to 2 weeks. There is some question whether he may be incarcerated. If he has, he can keep followup at the [facility], which is very good at [facility] and had GI consultants there. If he remains in the hospital, I would be more than happy to keep following, but I do think he can go home today and I talked with Dr. Maki about that last night. Job ID: [id number]
[2019-03-09] MEDS: Potassium Chloride 20 MEQ TAB PO SCH ×2 (11:42→17:59)
[2019-03-09] MEDS: cefTRIAXone\\ROCEPHIN 1 GM in Sodium Chloride 0.9% 100 ML IVPB SCH (11:43)
[2019-03-09] MEDS: Multivitamins, Adult 10 ML, Folic Acid 1 MG, Thiamine HCl 100 MG in Dextrose 5 %-0.45 %... IV SCH (11:43)
[2019-03-10] MEDS ORDERED: Thiamine 100 MG TAB PO SCH (09:00)
[2019-03-10] MEDS ORDERED: Folic Acid 1 MG TAB PO SCH (09:00)
--- NOTE | 2019-03-12 03:11 | DIS ---
DATE OF ADMISSION: 03/07/2019 DATE OF DISCHARGE: 03/09/2019 DISCHARGE DIAGNOSES: As of the followin. Colonic polyps. 2. Esophageal varices. 3. Gastrointestinal bleed. 4. Alcohol cirrhosis of the liver. 5. Gastroesophageal reflux disease. HOSPITAL COURSE: The patient is a 53-year-old male, who presents to the hospital on 03/08 with complaints of possible GI bleed. The patient stated that he recently had a banding procedure with GI for history of chronic liver disease. The patient subsequently started developing lower GI bleed and started having hematochezia and melena. The patient at this time was put on Protonix and also on octreotide and was also given antibiotics and GI was consulted. The patient did undergo EGD, which indicated esophageal varices on two columns, grade 3, banding x3 with good ablation. Otherwise, it was normal with EGD. Colonoscopy, he had multiple polyps which were removed. Pathology would be pending. The patient was notified that he needs to follow up with GI for the pathology report. The patient continued to improve. He was able to tolerate his diet before discharge. HOME MEDICATIONS: 1. Thiamine 100 mg daily. 2. Protonix 40 mg twice a day. 3. Nadolol 20 mg daily. 4. Lactulose 20 mg b.i.d. 5. Folic acid 1 mg p.o. daily. 6. Cipro 500 mg p.o. q.12 hours. 7. Vitamin B12 of 1000 mcg p.o. daily. PHYSICAL EXAMINATION: VITAL SIGNS: As of the following; temperature 97.6, 71, 18, 98% on room air, 105/61. GENERAL: He is awake, alert, and oriented x3. Does not appear in distress. CV: S1 and S2 present. No murmurs, rubs, or gallops. ABDOMEN: Soft and nontender. Bowel sounds are present x2. Again, he was noted and he was explained not to drink anymore and also follow up with GI for his biopsy results. Job ID: [id number]
== END 2019-03-09 19:51 | disposition home or self-care (01) | DRG 432 ==
LOC: ERS 21:34 → ONC 03-07 00:09
PROVIDERS: ADMIT Hospitalist; ATTEND Hospitalist
PROC: HZ2ZZZZ Detoxification Services for Substance Abuse Treatment (ICD-10-PCS; principal; 2019-03-08)
PROC: 0DBM8ZZ Excision of Descending Colon, Via Natural or Artificial Opening Endoscopic (ICD-10-PCS; 2019-03-08)
PROC: 0DBN8ZZ Excision of Sigmoid Colon, Via Natural or Artificial Opening Endoscopic (ICD-10-PCS; 2019-03-08)
PROC: 0DBP8ZZ Excision of Rectum, Via Natural or Artificial Opening Endoscopic (ICD-10-PCS; 2019-03-08)
PROC: 06L38CZ Occlusion of Esophageal Vein with Extraluminal Device, Via Natural or Artificial Opening Endoscopic (ICD-10-PCS; 2019-03-08)
DX: K70.30 Alcoholic cirrhosis of liver without ascites (principal); I85.11 Secondary esophageal varices with bleeding; D62 Acute posthemorrhagic anemia; K76.6 Portal hypertension; F10.188 Alcohol abuse with other alcohol-induced disorder; Z66 Do not resuscitate; K63.5 Polyp of colon; K21.9 Gastro-esophageal reflux disease without esophagitis; K31.89 Other diseases of stomach and duodenum; R04.0 Epistaxis; D69.6 Thrombocytopenia, unspecified; I10 Essential (primary) hypertension; Z79.899 Other long term (current) drug therapy
CPT/HCPCS: 36415; 71045; 80048; 80053; 83735; 85014; 85018; 85025; 85610; 85730; 86850; 86900; 86901; 96374; C9113; J0696; J2270; J2354; J2405; J2550; J3411; J3490; J7042; J7050

== ENCOUNTER 2019-03-26 17:59 | Emergency (ER) | payer SELFPAY ==
[2019-03-26 18:33] LABS: Hemoglobin 10.4 g/dL (14.0-18.0); Mean Corpuscular HGB CONC 29.9 g/dL (32.0-36.0); Mean Corpuscular Volume 80.2 fL (78.0-98.0); Mean Platelet Volume 5.3 fL (7.4-10.4); Platelet Count 71 thou/uL (130-400); RBC Distribution Width 20.7 % (11.5-14.5); Red Blood Cell (RBC) Count 4.35 mill/uL (4.70-6.10); White Blood Cell (WBC) Count 3.1 thou/uL (4.8-10.8)
[2019-03-26 18:53] LABS: INR-International Normal Ratio 1.2; Prothrombin Time 15.5 SEC (12.0-14.7)
[2019-03-26 18:54] LABS: PTT 35.4 SEC (22.9-36.1)
[2019-03-26 18:58] LABS: ALT (SGPT) 27 U/L (8-55); AST (SGOT) 50 U/L (5-34); Albumin 3.6 g/dL (3.5-5.0); Alkaline Phosphatase 94 U/L (40-150); Anion Gap 10 mmol/L (10-20); BUN (Urea Nitrogen) 5 mg/dL (8.4-25.7); Calc. Creatinine Clearance 0 mL/min (70-130); Calcium 8.2 mg/dL (7.8-10.44); Carbon Dioxide 25 mmol/L (22-29); Chloride 108 mmol/L (98-107); Estimated GFR-MDRD Greater than 90; Globulin 4.2 g/dL (2.4-3.5); Glucose 94 mg/dL (70-105); Lipase 77 U/L (8-78); Potassium 3.5 mmol/L (3.5-5.1); Protein, Total 7.8 g/dL (6.0-8.3); Sodium 141 mmol/L (136-145)
[2019-03-26 19:07] LABS: #Eosinphils 0.1 thou/uL (0.0-0.7); #Monocytes 0.3 thou/uL (0.11-0.59); #Neutrophils 1.8 thou/uL (1.40-6.50); %Eosinophils 2.2 % (0.0-10.0); %Lymphocytes 30.9 % (21.0-51.0); %Monocytes 9.7 % (0.0-10.0); %Neutrophils 56.3 % (42.0-75.0); MDiff Complete? YES; Ovalocytes SLIGHT = 2-5 cells (100X) (0-1/hpf)
[2019-03-26] MEDS ORDERED: Lidocaine Viscous Sol 2% 15 ml UD Cup ONE (19:36)
[2019-03-26] MEDS ORDERED: Mag-Al 1200 mg/1200 mg/30 ML UDCUP ONE (19:36)
--- NOTE | 2019-03-30 13:29 | EKG ---
Test Reason : Blood Pressure : / mmHG Vent. Rate : 077 BPM Atrial Rate : 077 BPM P-R Int : 136 ms QRS Dur : 090 ms QT Int : 398 ms P-R-T Axes : 007 008 015 degrees QTc Int : 450 ms Normal sinus rhythm Normal ECG Confirmed by KATY TOMPKINS DO ([id number]), content editor ANH PENA ([id number] on 03/30/2019 1:29:21 PM Referred By: Confirmed By:KATY TOMPKINS DO
== END 2019-03-26 20:56 | disposition home or self-care (01) ==
LOC: ERS 17:59
DX: K92.1 Melena (principal); F17.210 Nicotine dependence, cigarettes, uncomplicated; Z79.899 Other long term (current) drug therapy
CPT/HCPCS: 80053; 82140; 82274; 83690; 85025; 85610; 85730; 86850; 86900; 86901; 93005

== ENCOUNTER 2019-04-13 19:50 | Emergency (ER) | payer SELFPAY ==
[~2019-04-13 19:50] MED LIST: ISOVUE-370 76%-LOCM 1 ML ONE
[2019-04-13] MEDS ORDERED: Pantoprazole 40 MG VIAL ONE (20:11)
[2019-04-13 20:26] LABS: #Lymphocytes 0.8 thou/uL (1.20-3.40); #Monocytes 0.2 thou/uL (0.11-0.59); #Neutrophils 1.6 thou/uL (1.40-6.50); %Basophils 0.4 % (0.0-1.0); %Eosinophils 1.2 % (0.0-10.0); %Lymphocytes 30.1 % (21.0-51.0); %Monocytes 8.3 % (0.0-10.0); Hemoglobin 10.2 g/dL (14.0-18.0); Mean Corpuscular HGB CONC 32.7 g/dL (32.0-36.0); Mean Corpuscular Hemoglobin 25.9 pg (27.0-31.0); Mean Platelet Volume 5.8 fL (7.4-10.4); Platelet Count 74 thou/uL (130-400); RBC Distribution Width 21.5 % (11.5-14.5); Red Blood Cell (RBC) Count 3.95 mill/uL (4.70-6.10); White Blood Cell (WBC) Count 2.7 thou/uL (4.8-10.8)
[2019-04-13 20:44] LABS: ALT (SGPT) 30 U/L (8-55); AST (SGOT) 62 U/L (5-34); Albumin 3.7 g/dL (3.5-5.0); Alkaline Phosphatase 95 U/L (40-150); Anion Gap 13 mmol/L (10-20); BUN (Urea Nitrogen) 4 mg/dL (8.4-25.7); Bilirubin, Total 1.3 mg/dL (0.2-1.2); Calc. Creatinine Clearance 0 mL/min (70-130); Calcium 8.6 mg/dL (7.8-10.44); Carbon Dioxide 23 mmol/L (22-29); Chloride 109 mmol/L (98-107); Estimated GFR-MDRD Greater than 90; Globulin 4.1 g/dL (2.4-3.5); Glucose 100 mg/dL (70-105); Lipase 73 U/L (8-78); Potassium 3.5 mmol/L (3.5-5.1); Protein, Total 7.8 g/dL (6.0-8.3); Sodium 141 mmol/L (136-145)
--- NOTE | 2019-04-13 20:47 | CT ---
CT OF THE ABDOMEN AND PELVIS WITH IV CONTRAST: 04/13/19 INDICATION: 53-year-old male with history of cirrhosis with three days of intractable nausea, vomiting and diarrh ea. Patient reports black emesis and stools. The patient's abdominal pain is predominantly generalize d. Patient has history of esophageal banding and colonoscopy with polyp removal. COMPARISON: CT of the abdomen and pelvis dated 01/09/19 from [facility]. FINDINGS: The lung bases are clear. Again seen is the cirrhotic morphology of the liver. No focal hepatic lesion is evident. The pancreas , adrenal glands and kidneys are normal appearing. There is worsening splenomegaly now measuring up t o 17 cm where it previously measured 15 cm. Mild splenic varicosities are present within the left upp er quadrant. The hazy medina mesentery with scattered mesenteric lymph node nodularity is stable. There are mild vascular calcifications involving the abdominal aorta. No pathologically enlarged lymp h nodes are evident. There is a normal appendix in the right lower quadrant. The prostate is mildly enlarged. The bladder, rectum, and perirectal soft tissues are unremarkable appearing. No acute osseous abnormality is evident. IMPRESSION: 1. Cirrhosis with findings of portal hypertension. There is worsening splenomegaly now measuring up to 17 cm in greatest craniocaudad dimension. 2. Medina mesentery with mesenteric lymph node nodularity is stable. This can be idiopathic or ca n be related to the patient's underlying cirrhosis. 3. Mild prostate enlargement. 4. Other chronic details as above. POS:
[2019-04-13] MEDS ORDERED: Mag-Al 1200 mg/1200 mg/30 ML UDCUP ONE (21:09)
[2019-04-13] MEDS ORDERED: Lidocaine Viscous Sol 2% 15 ml UD Cup ONE (21:09)
[2019-04-13 21:26] LABS: Bilirubin Negative (Negative); Blood, Urine Negative (Negative); Clarity Clear (Clear); Glucose, Urine (Dipstick) 150 mg/dL (Negative); Leukocyte Negative Leu/uL (Negative); Nitrite Negative (Negative); Protein, Urine (Dipstick) Negative (Neg-Trace); Urobilinogen Normal mg/dL (Less than 2)
== END 2019-04-13 22:08 | disposition home or self-care (01) ==
LOC: ERS 19:50
DX: K92.2 Gastrointestinal hemorrhage, unspecified (principal); R10.9 Unspecified abdominal pain; R11.2 Nausea with vomiting, unspecified; F17.210 Nicotine dependence, cigarettes, uncomplicated; Z79.899 Other long term (current) drug therapy
CPT/HCPCS: 36415; 74177; 80053; 81003; 82140; 82274; 83690; 85025; 86850; 86900; 86901; 96361; 96374; C9113; Q9966

== ENCOUNTER 2023-04-15 15:48 | Emergency (ER) | payer MEDICAID, OTHER, SELFPAY ==
[~2023-04-15 15:48] MED LIST changes: -ISOVUE-370 76%-LOCM 1 ML ONE; +Iopamidol-370 76% 500 ML MDV (1 ML CHARGE) ONE
[2023-04-15 16:40] LABS: Actual Bicarbonate (HCO3v) 20.7 mEq/L (22-28); Base Excess -3.3 mEq/L (-2.0 to +3.0); Calcium, Ionized (venous) 1.02 mmol/L (1.16-1.32); Chloride (VBG) 105 mmol/L (98-106); Hematocrit-VBG 39 % (42.0-52.0); Hemoglobin (Hb) 13.4 g/dL (13.1-17.2); Potassium (VBG) 3.53 mmol/L (3.70-5.30); Sodium 133.8 mmol/L (133-146); pH (venous) 7.403 (7.32-7.43)
[2023-04-15 16:54] LABS: Hemoglobin 11.8 g/dL (14.0-18.0); Mean Corpuscular HGB CONC 33.6 g/dL (32.0-36.0); Mean Corpuscular Hemoglobin 33.3 pg (27.0-31.0); Mean Corpuscular Volume 99.2 fl (78.0-98.0); Mean Platelet Volume 13.5 fL (7.4-10.4); RBC Distribution Width 15.4 % (11.5-14.5); Red Blood Cell (RBC) Count 3.54 mill/uL (4.70-6.10); White Blood Cell (WBC) Count 6.1 10x3/uL (4.8-10.8)
[2023-04-15 16:59] LABS: SARS-CoV-2 NAA Rapid Test Not Detected (NotDetected)
[2023-04-15 17:08] LABS: Platelet Count 37 10x3/uL (130-400)
[2023-04-15 17:09] LABS: Delete Auto Diff?? YES; Manual Diff?? YES
[2023-04-15 17:15] LABS: Acetaminophen Less than 10 mcg/mL (10.0-30.0); Alcohol Less than 10.0 mg/dL (Less than 10); Salicylate Less than 8.0 mg/dL (15.0-30.0)
[2023-04-15 17:16] LABS: ALT (SGPT) 27 U/L (8-55); AST (SGOT) 39 U/L (5-34); Albumin 2.7 g/dL (3.5-5.0); Alkaline Phosphatase 63 U/L (40-110); Anion Gap 9 mmol/L (10-20); BUN (Urea Nitrogen) 14 mg/dL (8.4-25.7); Bilirubin, Total 7.1 mg/dL (0.2-1.2); CK (CPK) 25 U/L (30-200); Calc. Creatinine Clearance 0 mL/min (70-130); Calcium 7.6 mg/dL (7.8-10.44); Carbon Dioxide 20 mmol/L (22-29); Chloride 107 mmol/L (98-107); Estimated GFR 99; Globulin 3.9 g/dL (2.4-3.5); Glucose 125 mg/dL (70-105); Potassium 3.5 mmol/L (3.5-5.1); Protein, Total 6.6 g/dL (6.0-8.3); Sodium 132 mmol/L (136-145)
[2023-04-15] MEDS ORDERED: Ketorolac Tromethamine 30 MG/ML VIAL ONE (17:16)
[2023-04-15] MEDS ORDERED: Ondansetron PF 4 MG/2 ML Vial ONE (17:16)
[2023-04-15 17:30] LABS: Band 2 % (5-11); Burr Cells SLIGHT = 2-5 cells HPF (0-1); CellaVision Operator ID LAB.KB; Lymphocytes 7 % (21-51); Macrocytosis SLIGHT = 6-15 cells HPF (0-5); Monocytes 7 % (0-10); Neutrophil 83 % (42-75); Platelet Adequacy Comment Significant decrease; Polychromasia SLIGHT = 2-3 cells HPF (0-2); Smudge Cells 6.9 %; Total Cell Count 102
[2023-04-15 17:45] LABS: Amphetamine Not Detected (NotDetected); Barbiturates Screen Not Detected (NotDetected); Benzodiazepine Screen Detected (NotDetected); Cocaine Metabolite Screen Detected (NotDetected); Methadone Not Detected (NotDetected); Methamphetamine Not Detected (NotDetected); Opiate Screen Not Detected (NotDetected); Oxycodone Screen Not Detected (NotDetected); Phencyclidine (PCP) Not Detected (NotDetected); THC/Cannabinoid Screen Detected (NotDetected); Tricyclic Screen Not Detected (NotDetected)
[2023-04-15 17:52] LABS: CKMB 0.2 ng/mL (0-6.6)
[2023-04-15 17:58] LABS: Bacteria/HPF 4+ HPF (None Seen); Bilirubin 1+ (Negative); Blood, Urine 2+ (Negative); CAUTI Indications for Culture Pelvic or flank pain; Clarity Turbid (Clear); Glucose, Urine (Dipstick) Normal (Negative); Ketone, Urine Negative (Negative); Leukocyte 500 Leu/uL (Negative); Nitrite 1+ (Negative); Protein, Urine (Dipstick) 30 mg/dL (Neg-Trace); Specific Gravity, Urine 1.013 (1.002-1.036); Squamous Epithelial 0-3 HPF (0-3); Urobilinogen 6 mg/dL (Less than 2); WBC/HPF Greater than 50 HPF (0-3); pH, Urine 5.5 (5.0-9.0)
[2023-04-15 17:59] LABS: Urine Culture Reflex Yes Yes
[2023-04-15] MEDS ORDERED: cefTRIAXone (ROCEPHIN) 1 GM VIAL ONE (18:49)
== END 2023-04-15 20:23 | disposition home or self-care (01) ==
LOC: ERS 15:48
DX: N39.0 Urinary tract infection, site not specified (principal); R50.9 Fever, unspecified; F17.290 Nicotine dependence, other tobacco product, uncomplicated
CPT/HCPCS: 36415; 70450; 71045; 74177; 80053; 80306; 80307; 81001; 82550; 82553; 82805; 83605; 83880; 84484; 85025; 87040; 87077; 87086; 87149; 87186; 93005; 96361; 96365; 96375; J0696; J1885; J2405; Q9967

== ENCOUNTER 2023-08-11 01:21 | Emergency (ER) | payer OTHER ==
[2023-08-11 02:23] LABS: #Eosinphils 0.1 thou/uL (0.0-0.7); #Monocytes 0.3 thou/uL (0.11-0.59); #Neutrophils 2.3 thou/uL (1.40-6.50); %Basophils 1.1 % (0.0-1.0); %Eosinophils 1.6 % (0.0-10.0); %Lymphocytes 27.4 % (21.0-51.0); %Neutrophils 61.4 % (42.0-75.0); Hematocrit 41.5 % (42.0-52.0); Hemoglobin 14.2 g/dL (14.0-18.0); Mean Corpuscular HGB CONC 34.2 g/dL (32.0-36.0); Mean Corpuscular Hemoglobin 35.9 pg (27.0-31.0); Mean Corpuscular Volume 105.1 fl (78.0-98.0); Mean Platelet Volume 10.8 fL (7.4-10.4); Platelet Count 52 10x3/uL (130-400); RBC Distribution Width 14.6 % (11.5-14.5); Red Blood Cell (RBC) Count 3.95 mill/uL (4.70-6.10); White Blood Cell (WBC) Count 3.8 10x3/uL (4.8-10.8)
[2023-08-11 02:34] LABS: INR-International Normal Ratio 1.3; PTT 37.2 sec (22.9-36.1); Prothrombin Time 17.2 sec (12.0-14.7)
[2023-08-11 02:50] LABS: ALT (SGPT) 21 U/L (8-55); AST (SGOT) 43 U/L (5-34); Alkaline Phosphatase 73 U/L (40-110); Anion Gap 14 mmol/L (10-20); BUN (Urea Nitrogen) Less than 4 mg/dL (8.4-25.7); Bilirubin, Total 3.6 mg/dL (0.2-1.2); Calc. Creatinine Clearance 0 mL/min (70-130); Calcium 8.4 mg/dL (7.8-10.44); Carbon Dioxide 22 mmol/L (22-29); Chloride 108 mmol/L (98-107); Estimated GFR 103; Glucose 101 mg/dL (70-105); Lipase 66 U/L (8-78); Potassium 3.9 mmol/L (3.5-5.1); Sodium 140 mmol/L (136-145)
== END 2023-08-11 04:18 | disposition home or self-care (01) ==
LOC: ERS 01:21
DX: S09.90XA Unspecified injury of head, initial encounter (principal); R07.89 Other chest pain; F10.129 Alcohol abuse with intoxication, unspecified; F17.210 Nicotine dependence, cigarettes, uncomplicated; W18.30XA Fall on same level, unspecified, initial encounter
CPT/HCPCS: 70450; 71045; 72125; 80053; 80307; 82140; 83690; 85025; 85610; 85730; 93005

== ENCOUNTER 2023-09-30 12:36 | Inpatient (IN) | payer OTHER ==
[2023-09-30] MEDS ORDERED: Pantoprazole 40 MG VIAL ONE (13:06)
[2023-09-30] MEDS ORDERED: cefTRIAXone (ROCEPHIN) 2 GM VIAL ONE (13:06)
[2023-09-30] MEDS ORDERED: Thiamine HCl 200 MG/2 ML VIAL ONE (13:06)
[2023-09-30] MEDS ORDERED: Sodium Chloride 0.9% 100 ML ONE (13:07)
[2023-09-30 13:17] LABS: #Eosinphils 0.1 thou/uL (0.0-0.7); #Monocytes 0.4 thou/uL (0.11-0.59); #Neutrophils 4.4 thou/uL (1.40-6.50); %Basophils 0.7 % (0.0-1.0); %Eosinophils 1.3 % (0.0-10.0); %Monocytes 6.7 % (0.0-10.0); %Neutrophils 80.9 % (42.0-75.0); Hematocrit 31.2 % (42.0-52.0); Hemoglobin 10.6 g/dL (14.0-18.0); Mean Corpuscular Hemoglobin 35.7 pg (27.0-31.0); Mean Corpuscular Volume 105.1 fl (78.0-98.0); Mean Platelet Volume 10.8 fL (7.4-10.4); RBC Distribution Width 14.7 % (11.5-14.5); Red Blood Cell (RBC) Count 2.97 mill/uL (4.70-6.10); White Blood Cell (WBC) Count 5.4 10x3/uL (4.8-10.8)
[2023-09-30 13:18] LABS: Platelet Count 74 10x3/uL (130-400)
[2023-09-30 13:30] LABS: INR-International Normal Ratio 1.7; PTT 36.6 sec (22.9-36.1); Prothrombin Time 19.6 sec (12.0-14.7)
[2023-09-30] MEDS ORDERED: Octreotide Acetate 1,250 MCG in Sodium Chloride 0.9% 250 ML 250 ML IVPB SCH ×2 (13:45→17:45)
[2023-09-30] MEDS ORDERED: Octreotide Acetate 50 MCG/ML AMP SLOW IVP SCH (13:45)
[2023-09-30 13:46] LABS: ALT (SGPT) 18 U/L (8-55); AST (SGOT) 35 U/L (5-34); Albumin 2.4 g/dL (3.5-5.0); Alkaline Phosphatase 68 U/L (40-110); Anion Gap 15 mmol/L (10-20); BUN (Urea Nitrogen) 6 mg/dL (8.4-25.7); Bilirubin, Total 1.6 mg/dL (0.2-1.2); Calc. Creatinine Clearance 0 mL/min (70-130); Calcium 7.9 mg/dL (7.8-10.44); Carbon Dioxide 22 mmol/L (22-29); Chloride 109 mmol/L (98-107); Estimated GFR 104; Glucose 112 mg/dL (70-105); Lipase 82 U/L (8-78); Magnesium 1.3 mg/dL (1.6-2.6); Potassium 4.5 mmol/L (3.5-5.1); Protein, Total 6.4 g/dL (6.0-8.3); Sodium 141 mmol/L (136-145)
[2023-09-30] MEDS ORDERED: Magnesium 2 GM/50 ML BAG (IN WATER) ONE (14:18)
[2023-09-30] MEDS ORDERED: Acetaminophen 325 MG TAB PO PRN (14:36)
[2023-09-30] MEDS ORDERED: Ondansetron PF 4 MG/2 ML Vial IVP PRN (14:36)
[2023-09-30] MEDS ORDERED: Acetaminophen 650 MG Suppository PR PRN (14:36)
[2023-09-30] MEDS ORDERED: Sodium Chloride 0.9% 1,000 ML IV SCH (14:45)
[2023-09-30] MEDS ORDERED: Pantoprazole 80 MG in Sodium Chloride 0.9% 100 ML IVP SCH (14:45)
[2023-09-30] MEDS ORDERED: SUCCINYLCHOLINE/SOD CL,ISO/PF 200 MG/10 ML SYRINGE FS ONE (14:50)
[2023-09-30] MEDS ORDERED: SUGAMMADEX SODIUM 200 MG/2 ML VIAL ONE (14:50)
[2023-09-30] MEDS ORDERED: Ondansetron PF 4 MG/2 ML Vial ONE ×2 (14:50→16:34)
[2023-09-30] MEDS ORDERED: Rocuronium Bromide 10 MG/ML (10ML VIAL) ONE (14:50)
[2023-09-30] MEDS ORDERED: PROPOFOL 20 ML ONE (14:50)
[2023-09-30] MEDS ORDERED: Lidocaine 1% PF 5 ML VIAL ONE (14:50)
[2023-09-30] MEDS ORDERED: fentaNYL 50 mcg/mL 1 mL Vial ONE (14:50)
[2023-09-30] MEDS ORDERED: Lorazepam 2 MG/ML VIAL IM PRN (15:34)
[2023-09-30] MEDS ORDERED: Lorazepam 1 MG TAB PO PRN (15:34)
[2023-09-30] MEDS ORDERED: Ondansetron ODT 4 MG TAB PO PRN (15:34)
[2023-09-30] MEDS ORDERED: PHENYLEPHRINE-NS 100 MCG/ML 10 ML SYRINGE ONE (15:35)
[2023-09-30] MEDS ORDERED: Thiamine HCl 200 MG/2 ML VIAL SLOW IVP SCH (15:45)
[2023-09-30] MEDS ORDERED: Electrolyte Replacement Protocol 1 EACH FS SCH (15:45)
[2023-09-30] MEDS ORDERED: Vasopressin 20 UNITS/ML VIAL ONE (15:46)
[2023-09-30] MEDS ORDERED: Magnesium 2 GM/50 ML(in water) 2 GM in Premix 1 BAG IVPB SCH (16:00)
[2023-09-30] MEDS ORDERED: Electrolyte Replacement Protocol FS PRN (16:00)
[2023-09-30] MEDS ORDERED: Promethazine HCl 25 MG/ML VIAL IM PRN (16:04)
[2023-09-30] MEDS ORDERED: Ondansetron HCl/PF 4 MG/2 ML Vial IVP PRN (16:04)
[2023-09-30] MEDS ORDERED: Lactated Ringer's 1,000 ML IV SCH ×2 (18:00→21:30)
[2023-09-30 18:15] LABS: #Monocytes 0.4 thou/uL (0.11-0.59); #Neutrophils 4.7 thou/uL (1.40-6.50); %Basophils 0.7 % (0.0-1.0); %Eosinophils 0.3 % (0.0-10.0); %Lymphocytes 11.2 % (21.0-51.0); %Monocytes 6.8 % (0.0-10.0); %Neutrophils 80.7 % (42.0-75.0); Hematocrit 34.1 % (42.0-52.0); Hemoglobin 11.3 g/dL (14.0-18.0); Mean Corpuscular HGB CONC 33.1 g/dL (32.0-36.0); Mean Corpuscular Volume 105.6 fl (78.0-98.0); Mean Platelet Volume 10.8 fL (7.4-10.4); RBC Distribution Width 15.1 % (11.5-14.5); Red Blood Cell (RBC) Count 3.23 mill/uL (4.70-6.10); White Blood Cell (WBC) Count 5.9 10x3/uL (4.8-10.8)
[2023-09-30] MEDS: Lorazepam 1 MG TAB PO SCH ×2 (18:23→20:37)
[2023-09-30] MEDS: Multivitamins, Adult 10 ML, Folic Acid 1 MG, Thiamine HCl 100 MG in Dextrose 5 %-0.45 %... IV SCH (18:25)
[2023-09-30 18:27] LABS: Platelet Count 64 10x3/uL (130-400)
[2023-09-30] MEDS: Albumin 25% 25 GM (100 mL) BOT IVPB SCH ×2 (18:28→22:57)
[2023-09-30] MEDS ORDERED: Albumin 25% 25 GM (100 mL) BOT IVPB SCH (21:30)
[2023-09-30 23:54] LABS: Hematocrit 23.4 % (42.0-52.0)
[2023-10-01 00:05] LABS: Mean Corpuscular HGB CONC 33.8 g/dL (32.0-36.0); Mean Corpuscular Hemoglobin 35.3 pg (27.0-31.0); Mean Corpuscular Volume 104.5 fl (78.0-98.0); Mean Platelet Volume 11.2 fL (7.4-10.4); RBC Distribution Width 15.5 % (11.5-14.5); Red Blood Cell (RBC) Count 2.21 mill/uL (4.70-6.10); White Blood Cell (WBC) Count 3.3 10x3/uL (4.8-10.8)
[2023-10-01 00:07] LABS: Hemoglobin 7.8 g/dL (14.0-18.0)
[2023-10-01 00:08] LABS: Platelet Count 43 10x3/uL (130-400)
[2023-10-01] MEDS: Lorazepam 1 MG TAB PO SCH ×4 (02:14→20:48)
[2023-10-01 05:27] LABS: #Eosinphils 0.1 thou/uL (0.0-0.7); #Monocytes 0.3 thou/uL (0.11-0.59); #Neutrophils 1.5 thou/uL (1.40-6.50); %Basophils 0.8 % (0.0-1.0); %Eosinophils 1.9 % (0.0-10.0); %Monocytes 11.4 % (0.0-10.0); %Neutrophils 58.5 % (42.0-75.0); Hematocrit 26.8 % (42.0-52.0); Mean Corpuscular HGB CONC 33.6 g/dL (32.0-36.0); Mean Corpuscular Hemoglobin 34.5 pg (27.0-31.0); Mean Corpuscular Volume 102.7 fl (78.0-98.0); RBC Distribution Width 15.9 % (11.5-14.5); Red Blood Cell (RBC) Count 2.61 mill/uL (4.70-6.10); White Blood Cell (WBC) Count 2.6 10x3/uL (4.8-10.8)
[2023-10-01] MEDS: Albumin 25% 25 GM (100 mL) BOT IVPB SCH ×2 (05:28→11:34)
[2023-10-01 06:06] LABS: BUN (Urea Nitrogen) 11 mg/dL (8.4-25.7); Platelet Count 45 10x3/uL (130-400)
[2023-10-01 06:07] LABS: ALT (SGPT) 15 U/L (8-55); AST (SGOT) 36 U/L (5-34)
[2023-10-01 06:11] LABS: Albumin 3.2 g/dL (3.5-5.0); Alkaline Phosphatase 47 U/L (40-110); Anion Gap 10 mmol/L (10-20); Bilirubin, Total 3.8 mg/dL (0.2-1.2); Calc. Creatinine Clearance 119 mL/min (70-130); Calcium 7.4 mg/dL (7.8-10.44); Carbon Dioxide 22 mmol/L (22-29); Chloride 109 mmol/L (98-107); Estimated GFR 104; Globulin 2.9 g/dL (2.4-3.5); Glucose 161 mg/dL (70-105); Potassium 3.7 mmol/L (3.5-5.1); Protein, Total 6.1 g/dL (6.0-8.3); Sodium 137 mmol/L (136-145)
[2023-10-01] MEDS: Lactated Ringer's 1,000 ML IV SCH ×2 (08:30→15:52)
[2023-10-01] MEDS: Pantoprazole 80 MG, Admixture Fee 1 EACH in Sodium Chloride 0.9% 100 ML IVP SCH ×2 (09:00→22:54)
[2023-10-01 11:27] LABS: #Monocytes 0.2 thou/uL (0.11-0.59); #Neutrophils 1.2 thou/uL (1.40-6.50); %Eosinophils 1.9 % (0.0-10.0); %Lymphocytes 30.5 % (21.0-51.0); %Monocytes 11.4 % (0.0-10.0); %Neutrophils 54.7 % (42.0-75.0); Hematocrit 25.4 % (42.0-52.0); Hemoglobin 8.5 g/dL (14.0-18.0); Mean Corpuscular HGB CONC 33.5 g/dL (32.0-36.0); Mean Corpuscular Hemoglobin 34.6 pg (27.0-31.0); Mean Corpuscular Volume 103.3 fl (78.0-98.0); Mean Platelet Volume 9.9 fL (7.4-10.4); RBC Distribution Width 15.9 % (11.5-14.5); Red Blood Cell (RBC) Count 2.46 mill/uL (4.70-6.10); White Blood Cell (WBC) Count 2.1 10x3/uL (4.8-10.8)
[2023-10-01 11:33] LABS: Platelet Count 41 10x3/uL (130-400)
[2023-10-01] MEDS: cefTRIAXone\\ROCEPHIN 2 GM in Sodium Chloride 0.9% 100 ML IVPB SCH (13:36)
[2023-10-01 15:31] LABS: Hematocrit 27.8 % (42.0-52.0); Hemoglobin 9.3 g/dL (14.0-18.0); Mean Corpuscular HGB CONC 33.5 g/dL (32.0-36.0); Mean Corpuscular Hemoglobin 35.4 pg (27.0-31.0); Mean Corpuscular Volume 105.7 fl (78.0-98.0); Mean Platelet Volume 10.7 fL (7.4-10.4); RBC Distribution Width 15.9 % (11.5-14.5); Red Blood Cell (RBC) Count 2.63 mill/uL (4.70-6.10); White Blood Cell (WBC) Count 1.7 10x3/uL (4.8-10.8)
[2023-10-01] MEDS ORDERED: Lorazepam 1 MG TAB PO PRN (15:34)
[2023-10-01 16:06] LABS: Platelet Count 43 10x3/uL (130-400)
[2023-10-01] MEDS: Multivitamins, Adult 10 ML, Folic Acid 1 MG, Thiamine HCl 100 MG in Dextrose 5 %-0.45 %... IV SCH (16:48)
[2023-10-01 21:46] LABS: Hematocrit 28.2 % (42.0-52.0); Hemoglobin 9.2 g/dL (14.0-18.0); Mean Corpuscular HGB CONC 32.6 g/dL (32.0-36.0); Mean Corpuscular Volume 107.2 fl (78.0-98.0); Mean Platelet Volume 12.8 fL (7.4-10.4); RBC Distribution Width 15.9 % (11.5-14.5); Red Blood Cell (RBC) Count 2.63 mill/uL (4.70-6.10); White Blood Cell (WBC) Count 1.8 10x3/uL (4.8-10.8)
[2023-10-01 21:49] LABS: Platelet Count 64 10x3/uL (130-400)
[2023-10-02] MEDS: Lactated Ringer's 1,000 ML IV SCH ×3 (03:40→20:33)
[2023-10-02] MEDS: Lorazepam 1 MG TAB PO SCH ×2 (03:40→09:40)
[2023-10-02 05:19] LABS: Hematocrit 26.2 % (42.0-52.0); Hemoglobin 8.8 g/dL (14.0-18.0); Manual Diff?? YES; Mean Corpuscular HGB CONC 33.6 g/dL (32.0-36.0); Mean Corpuscular Hemoglobin 34.2 pg (27.0-31.0); Mean Platelet Volume 10.3 fL (7.4-10.4); RBC Distribution Width 15.4 % (11.5-14.5); Red Blood Cell (RBC) Count 2.57 mill/uL (4.70-6.10); White Blood Cell (WBC) Count 1.9 10x3/uL (4.8-10.8)
[2023-10-02 05:38] LABS: Delete Auto Diff?? YES; Mean Corpuscular Volume 101.9 fl (78.0-98.0); Platelet Count 38 10x3/uL (130-400)
[2023-10-02 06:17] LABS: CellaVision Operator ID lab.abc; Eosinophils 2 % (0-10); Large Platelets 7.1 % (0-5); Lymphocytes 28 % (21-51); Monocytes 4 % (0-10); Myelocyte 1 % (0-0); Neutrophil 64 % (42-75); Nucleated RBC (Manual Ct) 1 % (0); Platelet Adequacy Comment Platelets Decreased; Polychromasia SLIGHT = 2-3 cells HPF (0-2); RBC Morphology Within Normal Limits; Smudge Cells 16.2 %; Total Cell Count 99
[2023-10-02 06:46] LABS: ALT (SGPT) 17 U/L (8-55); AST (SGOT) 42 U/L (5-34); Albumin 3.3 g/dL (3.5-5.0); Alkaline Phosphatase 43 U/L (40-110); Anion Gap 8 mmol/L (10-20); BUN (Urea Nitrogen) 8 mg/dL (8.4-25.7); Bilirubin, Total 3.1 mg/dL (0.2-1.2); Calc. Creatinine Clearance 122 mL/min (70-130); Calcium 7.7 mg/dL (7.8-10.44); Carbon Dioxide 24 mmol/L (22-29); Chloride 108 mmol/L (98-107); Estimated GFR 104; Globulin 2.9 g/dL (2.4-3.5); Glucose 135 mg/dL (70-105); Potassium 3.4 mmol/L (3.5-5.1); Protein, Total 6.2 g/dL (6.0-8.3); Sodium 137 mmol/L (136-145)
[2023-10-02] MEDS ORDERED: Potassium Chloride 20 MEQ in Premix 1 BAG IVPB SCH (08:00)
[2023-10-02] MEDS ORDERED: Potassium Bicarbonate/Cit Ac 20 MEQ TAB PO SCH (08:00)
[2023-10-02] MEDS: Folic Acid 1 MG TAB PO SCH (09:40)
[2023-10-02] MEDS: Multivit, Therapeutic 1 TAB PO SCH (09:40)
[2023-10-02] MEDS: Thiamine 100 MG TAB PO SCH (09:40)
[2023-10-02] MEDS: cefTRIAXone\\ROCEPHIN 2 GM in Sodium Chloride 0.9% 100 ML IVPB SCH (13:51)
[2023-10-02 14:36] LABS: Potassium 3.7 mmol/L (3.5-5.1)
[2023-10-02] MEDS ORDERED: Lorazepam 1 MG TAB PO PRN (15:34)
[2023-10-02] MEDS: Lorazepam 0.5 MG TAB PO SCH ×2 (15:44→20:33)
[2023-10-03 03:49] VITALS: BMI 25.9
[2023-10-03] MEDS: Lorazepam 0.5 MG TAB PO SCH ×2 (03:51→09:13)
[2023-10-03 03:56] LABS: Hematocrit 27.2 % (42.0-52.0); Hemoglobin 9.2 g/dL (14.0-18.0); Manual Diff?? YES; Mean Corpuscular HGB CONC 33.8 g/dL (32.0-36.0); Mean Corpuscular Hemoglobin 34.6 pg (27.0-31.0); Mean Corpuscular Volume 102.3 fl (78.0-98.0); Mean Platelet Volume 10.3 fL (7.4-10.4); RBC Distribution Width 14.9 % (11.5-14.5); Red Blood Cell (RBC) Count 2.66 mill/uL (4.70-6.10); White Blood Cell (WBC) Count 1.9 10x3/uL (4.8-10.8)
[2023-10-03 04:16] LABS: Delete Auto Diff?? YES; Platelet Count 44 10x3/uL (130-400)
[2023-10-03 04:22] LABS: ALT (SGPT) 17 U/L (8-55); AST (SGOT) 37 U/L (5-34); Albumin 3.4 g/dL (3.5-5.0); Alkaline Phosphatase 48 U/L (40-110); Anion Gap 10 mmol/L (10-20); BUN (Urea Nitrogen) 7 mg/dL (8.4-25.7); Bilirubin, Total 3.2 mg/dL (0.2-1.2); Calc. Creatinine Clearance 111 mL/min (70-130); Calcium 8.1 mg/dL (7.8-10.44); Carbon Dioxide 26 mmol/L (22-29); Chloride 104 mmol/L (98-107); Estimated GFR 101; Globulin 3.1 g/dL (2.4-3.5); Glucose 94 mg/dL (70-105); Potassium 3.6 mmol/L (3.5-5.1); Protein, Total 6.5 g/dL (6.0-8.3); Sodium 136 mmol/L (136-145)
[2023-10-03 05:07] LABS: Anisocytosis SLIGHT = 6-15 cells HPF (0-5); Band 2 % (5-11); CellaVision Operator ID LAB.JMM; Large Platelets 4.1 % (0-5); Lymphocytes 25 % (21-51); Macrocytosis SLIGHT = 6-15 cells HPF (0-5); Metamyelocyte 1 % (0-0); Monocytes 9 % (0-10); Myelocyte 1 % (0-0); Neutrophil 61 % (42-75); Platelet Adequacy Comment Platelets Normal; Polychromasia SLIGHT = 2-3 cells HPF (0-2); Smudge Cells 13.4 %; Total Cell Count 97
[2023-10-03] MEDS: Multivit, Therapeutic 1 TAB PO SCH (09:12)
[2023-10-03] MEDS: Folic Acid 1 MG TAB PO SCH (09:12)
[2023-10-03] MEDS: Lactated Ringer's 1,000 ML IV SCH (09:13)
[2023-10-03] MEDS: Thiamine 100 MG TAB PO SCH (09:13)
[2023-10-03] MEDS: cefTRIAXone\\ROCEPHIN 2 GM in Sodium Chloride 0.9% 100 ML IVPB SCH (13:23)
[2023-10-03] MEDS ORDERED: Lorazepam 0.5 MG TAB PO PRN (15:34)
[2023-10-04 04:55] LABS: Hematocrit 27.1 % (42.0-52.0); Hemoglobin 9.3 g/dL (14.0-18.0)
[2023-10-04 04:56] LABS: Platelet Count 49 10x3/uL (130-400)
[2023-10-04 08:11] VITALS: BP 114/77; TEMP 98.1
[2023-10-04] MEDS: Folic Acid 1 MG TAB PO SCH (08:50)
[2023-10-04] MEDS: Thiamine 100 MG TAB PO SCH (08:50)
[2023-10-04] MEDS: Multivit, Therapeutic 1 TAB PO SCH (08:50)
== END 2023-10-04 13:19 | disposition home or self-care (01) | DRG 369 ==
LOC: ERS 12:36 → SDC 15:15 → CCU 16:10 → SURG B 10-01 18:44
PROVIDERS: ADMIT Internal Medicine; ATTEND Family Medicine
PROC: 0DJ08ZZ Inspection of Upper Intestinal Tract, Via Natural or Artificial Opening Endoscopic (ICD-10-PCS; principal; 2023-09-30)
PROC: 30233N1 Transfusion of Nonautologous Red Blood Cells into Peripheral Vein, Percutaneous Approach (ICD-10-PCS; 2023-09-30)
PROC: 3E033XZ Introduction of Vasopressor into Peripheral Vein, Percutaneous Approach (ICD-10-PCS; 2023-09-30)
PROC: 30233J1 Transfusion of Nonautologous Serum Albumin into Peripheral Vein, Percutaneous Approach (ICD-10-PCS; 2023-09-30)
DX: K22.6 Gastro-esophageal laceration-hemorrhage syndrome (principal); D62 Acute posthemorrhagic anemia; F10.288 Alcohol dependence with other alcohol-induced disorder; K70.30 Alcoholic cirrhosis of liver without ascites; E88.09 Other disorders of plasma-protein metabolism, not elsewhere classified; K31.89 Other diseases of stomach and duodenum; K76.89 Other specified diseases of liver; D69.6 Thrombocytopenia, unspecified; I85.10 Secondary esophageal varices without bleeding; Z98.890 Other specified postprocedural states; Z80.0 Family history of malignant neoplasm of digestive organs; Z71.41 Alcohol abuse counseling and surveillance of alcoholic
CPT/HCPCS: 36415; 36430; 74176; 74183; 80053; 80307; 82105; 82140; 82607; 83690; 83735; 85014; 85018; 85025; 85027; 85049; 85610; 85730; 86850; 86900; 86901; 93005; 96365; 96368; 96375; 96376; C9113; J0696; J2354; J2405; J2704; J3010; J3411; J3475; J3490; J7042; J7050; J7120; P9016; P9047